=== PATIENT | male | born 1985 | race Caucasian/White ===

== ENCOUNTER 2020-03-07 11:20 | Emergency (ER) | payer OTHER ==
[2020-03-07] MEDS ORDERED: XYLOCAINE 1% HCL 20 ML MDV IJ ONE (11:44)
[2020-03-07] MEDS ORDERED: XYLOCAINE 1% HCL 20 ML MDV ONE (11:47)
--- NOTE | 2020-03-07 12:06 | ERPHSYRPT ---
- History of Present Illness Time Seen by Provider: 03/07/20 11:40 Source: patient Exam Limitations: no limitations Patient Subjective Stated Complaint: Laceration Triage Nursing Assessment: Patient ambulated back to ED and transferred self to bed. Patient A+O X3. Patient's skin pink, warm and dry. Patient complains of laceration to left thigh. 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 6cm X 1cm laceration noted. Patient denies pain or discomfort. Patient states he is up to date on tetanus. Physician History: Patient is a 34-year-old male presents to our ED with a laceration to his proximal left anterolateral thigh. Patient was cutting a tree and inadvertently injured himself with his chainsaw. Injury occurred just prior to arrival. Tetanus up-to-date. Pain localized. No other injuries. Symptoms are mild to moderate intensity. No specific worsening or improving factors. No associated trauma otherwise. Patient voices no other complaints concerns at this time. Method of Injury: other (Chainsaw.) Occurred: just prior to arrival Quality: constant Severity of Pain-Max: moderate Severity of Pain-Current: mild Lower Extremities Pain: thigh: left Modifying Factors: Improves With: other (Outpatient to the involved area.) Associated Symptoms: none Allergies/Adverse Reactions: erythromycin base Allergy (Verified 03/07/20 11:28) Hives Hx Tetanus, Diphtheria Vaccination/Date Given: Yes (UP TO DATE) Hx Influenza Vaccination/Date Given: No Hx Pneumococcal Vaccination/Date Given: No Immunizations Up to Date: Yes Travel Risk - International Travel Have you traveled outside of the country in past 3 weeks: No - Coronavirus Screening Are you exhibiting any of the following symptoms?: No Close contact with a COVID-19 positive Pt in past 14-21 Days: No - Review of Systems Constitutional: No Symptoms, No Fever, No Chills Eyes: No Symptoms Ears, Nose, & Throat: No Symptoms Respiratory: No Symptoms, No Cough, No Dyspnea Cardiac: No Symptoms, No Chest Pain, No Edema, No Syncope Abdominal/Gastrointestinal: No Symptoms, No Abdominal Pain, No Nausea, No Vomiting, No Diarrhea Genitourinary Symptoms: No Symptoms, No Dysuria Musculoskeletal: No Symptoms, No Back Pain, No Neck Pain Skin: No Symptoms, No Rash Neurological: No Symptoms, No Dizziness, No Focal Weakness, No Sensory Changes Psychological: No Symptoms Endocrine: No Symptoms Hematologic/Lymphatic: No Symptoms Immunological/Allergic: No Symptoms All Other Systems: Reviewed and Negative - Past Medical History Pertinent Past Medical History: Yes Neurological History: Migraines ENT History: No Pertinent History Cardiac History: No Pertinent History Respiratory History: No Pertinent History Endocrine Medical History: No Pertinent History Musculoskeletal History: No Pertinent History GI Medical History: No Pertinent History History: No Pertinent History Psycho-Social History: No Pertinent History Male Reproductive Disorders: No Pertinent History Other Medical History: weakness recently- pt states he has been going thru testing - Past Surgical History Past Surgical History: Yes Gastrointestinal: Hernia Repair Musculoskeletal: Orthopedic Surgery Other Surgical History: acl repair - Social History Smoking Status: Never smoker Exposure to second hand smoke: No Drug Use: none Patient Lives Alone: No - Nursing Vital Signs Nursing Vital Signs: Initial Vital Signs Pulse Rate 105 H 03/07/20 11:29 Respiratory Rate 18 03/07/20 11:29 Blood Pressure 158/94 03/07/20 11:29 O2 Sat by Pulse Oximetry 99 03/07/20 11:29 Pain Scale Pain Intensity 0 - Physical Exam General Appearance: no apparent distress, alert Eyes, Ears, Nose, Throat Exam: moist mucous membranes Neck Exam: non-tender, supple Cardiovascular/Respiratory Exam: chest non-tender, normal breath sounds, regular rate/rhythm, no respiratory distress Gastrointestinal/Abdominal Exam: non-tender, guarding Back Exam: normal inspection, No vertebral tenderness Hips Exam: bilateral: non-tender, normal inspection, normal range of motion, no evidence of injury Legs Exam: right leg: non-tender, normal inspection, normal range of motion, no evidence of injury Knees Exam: left knee: other (Left thigh presents with a superficial 6 cm x 1 cm laceration.), bilateral knee: non-tender, normal inspection, normal range of motion, no evidence of injury Ankle Exam: bilateral ankle: non-tender, normal inspection, normal range of motion, no evidence of injury Foot Exam: bilateral foot: non-tender, normal inspection, normal range of motion, no evidence of injury Neuro/Tendon Exam: normal sensation, normal motor functions Mental Status Exam: alert, oriented x 3, cooperative Skin Exam: normal color, warm, dry SpO2 Interpretation: normal SpO2: 99 O2 Delivery: Room Air Procedures - Laceration/Wound Repair Left Upper Anterior Lateral Proximal Thigh Wound Location: Left Wound Length (cm): 6 Wound's Depth, Shape: superficial Wound Explored: clean Irrigated: Yes Hibiclens Prep: Yes Anesthesia: 1% Lidocaine Volume Anesthetic (ccs): 5 Wound Debrided: Agreement necessary. Wound Repaired With: sutures Suture Size/Type: 5-0, nylon Number of Sutures: 7 Layer Closure?: No Sterile Dressing Applied?: Yes Splint Applied?: Yes Ordered Tests: Medication Summary Discontinued Medications Generic Name Dose Route Start Last Admin Trade Name Fabian PRN Reason Stop Dose Admin Lidocaine HCl 5 ml 03/07/20 11:44 03/07/20 11:50 Xylocaine 1% Hcl 20 Ml Mdv IJ 03/07/20 11:45 5 ml STAT ONE Administration Lidocaine HCl Confirm 03/07/20 11:47 Xylocaine 1% Hcl 20 Ml Mdv Administered 03/07/20 11:48 Dose 5 ml .ROUTE .STRocketBolt-MED ONE - Progress Progress: improved Progress Note: 03/07/20 12:09 7 sutures applied after wound was irrigated. Sutures were simple interrupted. No complications. Patient tolerated procedure well. Neurovascular type d istally post procedure. Sutures shall stay in for approximately 7 days. Antibiotics forwarded the patient's pharmacy. Tetanus up-to-date. Patient voiced no other complaints or concerns at this time. Patient follow-up with his primary care doctor within 48 hours for reevaluation. Counseled pt/family regarding: diagnosis, need for follow-up - Departure Departure Disposition: Home Clinical Impression: Laceration Condition: Stable Critical Care Time: No Instructions: Laceration Repair With Stitches (DC) Additional Instructions: Discharge/Care Plan BERNIEMORGANMIGUEL ANGELANA RIOS was seen on 03/07/20 in the Emergency Room. The patient was counseled regarding Diagnosis,Lab results, Imaging studies, need for follow up and when to return to the Emergency Room. Prescriptions given: Discharge Note I have spoken with the patient and/or caregivers. I have explained the patient's condition, diagnosis and treatment plan based on the information available to me at this time. I have answered the patient's and/or caregiver's questions and addressed any concerns. The patient and/or caregivers have as good understanding of the patient's diagnosis, condition and treatment plan as can be expected at this point. The vital signs have been stable. The patient's condition is stable and appropriate for discharge from the emergency department. The patient will pursue further outpatient evaluation with the primary care physician or other designated or consulting physician as outlined in the d ischarge instructions. The patient and/or caregivers are agreeable to this plan of care and follow-up instructions have been explained in detail. The patient and/or caregivers have received these instruction. The patient/and or caregivers are aware that any significant change in condition or worsening of symptoms should prompt an immediate return to this or the closest emergency department or call 911. Prescriptions: Cephalexin Mh 500 mg [Keflex 500 mg] 500 mg PO TID 5 Days #15 capsule
[2020-03-07] MEDS ORDERED: BACIGUENT PACKET ONE (12:15)
[2020-03-07 12:27] VITALS: BP 143/97; PULSE 88; O2SAT 100
== END 2020-03-07 12:22 | disposition home or self-care (01) ==
LOC: ED 11:20
DX: S71.112A Laceration without foreign body, left thigh, initial encounter (principal); W29.3XXA Contact with powered garden and outdoor hand tools and machinery, initial encounter; Y93.9 Activity, unspecified; Y92.9 Unspecified place or not applicable
CPT/HCPCS: 12002; 99283; A9270-GY

== ENCOUNTER 2021-05-16 15:58 | Day surgery (SDC) | payer OTHER ==
[2021-05-16] MEDS ORDERED: Depo-Medrol 40 MG/ML IM ONE (15:59)
[2021-05-16] MEDS ORDERED: Xylocaine 1% Vial 30 ML PF IJ ONE (15:59)
[2021-05-16] MEDS ORDERED: Sodium Chloride 0.9(Preservative Free) 10 ML IJ ONE (15:59)
[2021-05-16] MEDS ORDERED: Lactated Ringers 1,000 ML IV ONE (16:33)
[2021-05-16] MEDS ORDERED: DIPRIVAN 200 MG/20 ML IV ONE ×2 (17:32→17:37)
--- NOTE | 2021-05-16 20:38 | XRAY ---
Indication: Lumbar ZANE. Intraoperative fluoroscopy provided for 32 seconds. 2 digital spot images submitted for interpretation demonstrates posterior needle tip projecting just posterior to L4-L5 interspace. Small amount of contrast injected for needle tip placement. Correlate with intraoperative findings/report.
--- NOTE | 2021-05-17 14:59 | XRAY ---
32 seconds of fluoroscopy was used in surgery for a lumbar ZANE.
== END 2021-05-16 18:10 | disposition home or self-care (01) ==
LOC: SDC-PAIN 15:58
PROVIDERS: ATTEND Psychiatry & Neurology Pain Medicine
DX: M54.16 Radiculopathy, lumbar region (principal); Z79.899 Other long term (current) drug therapy
CPT/HCPCS: 62323; 72100; 77003; J1030; J2001; J2704; Q9966

== ENCOUNTER 2021-06-27 15:18 | Day surgery (SDC) | payer OTHER ==
[2021-06-27] MEDS ORDERED: Xylocaine 1% Vial 30 ML PF IJ ONE (15:19)
[2021-06-27] MEDS ORDERED: Depo-Medrol 40 MG/ML IM ONE (15:19)
[2021-06-27] MEDS ORDERED: Sodium Chloride 0.9% 10 ML FLUSH Syringe IJ ONE (15:19)
[2021-06-27] MEDS ORDERED: Lactated Ringers 1,000 ML IV ONE (16:08)
[2021-06-27] MEDS ORDERED: DIPRIVAN 200 MG/20 ML IV ONE ×2 (16:37→16:44)
--- NOTE | 2021-06-27 22:05 | XRAY ---
Indication: Lumbar ZANE. Intraoperative fluoroscopy provided for 29 seconds. Single lateral digital spot image submitted for interpretation demonstrates posterior needle tip projecting just posterior to the L4-L5 interspace. Small amount of contrast injected for needle tip placement. Correlate with intraoperative findings/report.
--- NOTE | 2021-06-28 09:03 | XRAY ---
29 seconds fluoroscopy time in surgery for lumbar ZANE.
== END 2021-06-27 17:15 | disposition home or self-care (01) ==
LOC: SDC-PAIN 15:18
PROVIDERS: ATTEND Psychiatry & Neurology Pain Medicine
DX: M54.16 Radiculopathy, lumbar region (principal); Z79.899 Other long term (current) drug therapy
CPT/HCPCS: 62323; 72100; 77003; J1030; J2001; J2704; Q9966

== ENCOUNTER 2021-07-25 10:15 | Day surgery (SDC) | payer OTHER ==
[2021-07-25] MEDS ORDERED: LIDOCAINE HCL 2% 100 MG/5 ML IJ ONE (10:16)
[2021-07-25] MEDS ORDERED: Depo-Medrol 40 MG/ML IM ONE (10:16)
[2021-07-25] MEDS ORDERED: Lactated Ringers 1,000 ML IV ONE (11:20)
[2021-07-25] MEDS ORDERED: DIPRIVAN 200 MG/20 ML IV ONE (11:49)
[2021-07-25] MEDS ORDERED: Ketamine HCl 50 MG/ML ONE (11:52)
--- NOTE | 2021-07-25 12:36 | XRAY ---
Indication: Bilateral L4-S1 MBB. Intraoperative fluoroscopy provided for 8 seconds. Single digital spot image submitted for interpretation demonstrates posterior needle tips projecting over the expected left and right L4-S1 nerve roots. Correlate with intraoperative findings/report.
--- NOTE | 2021-07-25 12:46 | XRAY ---
8 seconds fluoroscopy time in surgery for bilateral L4-S1 MBB.
== END 2021-07-25 12:13 | disposition home or self-care (01) ==
LOC: SDC-PAIN 10:15
PROVIDERS: ATTEND Psychiatry & Neurology Pain Medicine
DX: M47.816 Spondylosis without myelopathy or radiculopathy, lumbar region (principal); Z79.899 Other long term (current) drug therapy
CPT/HCPCS: 64493; 64494; 72020; 77002; J1030; J2704

== ENCOUNTER 2021-07-27 20:47 | Emergency (ER) | payer OTHER ==
[2021-07-27] MEDS ORDERED: Adacel Vial IM ONE ×2 (21:02→21:17)
[2021-07-27] MEDS ORDERED: KEFZOL 1 GM IM ONE (21:03)
[2021-07-27] MEDS ORDERED: KEFZOL 1 GM ONE (21:16)
--- NOTE | 2021-07-27 21:57 | XRAY ---
Indication: Head injury with laceration. Multiple contiguous axial images obtained through the head without contrast. Comparison: March 25, 2016. Normal appearing brain parenchyma, ventricles, and bony calvarium. New small right posterior parietal scalp hematoma with overlying cutaneous yesika. Visualized paranasal sinuses and master cells are clear. Impression: Right posterior parietal scalp hematoma. Remaining CT head without contrast exam is again normal.
--- NOTE | 2021-07-27 22:20 | ERPHSYRPT ---
- History of Present Illness Source: patient Exam Limitations: no limitations Patient Subjective Stated Complaint: I was standing up cutting a piece of metal, went to step back and tripped on a motorcycle aleks, trying to catch myself, I grabbed a piece of metal in my garage and it sliced my hand open Triage Nursing Assessment: Pt was in garage cutting a piece of metal, he went to step back and tripped on a motorcyle aleks, trying to catch himself he grabbed a piece of sheet metal and sliced rt hand open. Pt has lacerations to all 4 fingers at the back side of knuckles, middle finger is deep with tendon exposed. Pt also has laceration to rt posterior side of head, cleansed with NS and hibiclens, and Dr. Bloom secured it with 3 gordon. Pt had 2.5 cans of beer tonight prior to incident. Physician History: 35 yo wm fell in his garage before arrival lacerating his R 2-5 digits ventrally on palmar side. Pt unable to flex digits 3/4 but has good capillary return and sensation of all digits. He also lacerated his R parietal scalp. Pt denies LOC/cervical pain/N/V/T-L spine pain/chest pain/abdominal pain/LE pain. States that he has consumed a small amount of alcohol this evening but denies other injuries. Occurred: just prior to arrival Method of Injury: fell Quality: constant Severity of Pain-Max: moderate Severity of Pain-Current: moderate Extremities Pain Location: 2nd finger: right, 3rd finger: right, 4th finger: right, 5th finger: right Modifying Factors: Improves With: movement Associated Symptoms: none Allergies/Adverse Reactions: erythromycin base Allergy (Verified 07/27/21 21:07) Hives Home Medications: Gabapentin 300 mg [Neurontin 300 mg] 300 mg PO BID 07/27/21 [History] Hx Tetanus, Diphtheria Vaccination/Date Given: No Hx Influenza Vaccination/Date Given: No Hx Pneumococcal Vaccination/Date Given: No Immunizations Up to Date: No Travel Risk - International Travel Have you traveled outside of the country in past 3 weeks: No - Coronavirus Screening Are you exhibiting any of the following symptoms?: No Close contact with a COVID-19 positive Pt in past 14-21 Days: No - Vaccine Status Have you recieved a Covid-19 vaccination: No - Review of Systems Constitutional: No Symptoms Eyes: No Symptoms Ears, Nose, & Throat: No Symptoms Respiratory: No Symptoms Cardiac: No Symptoms Abdominal/Gastrointestinal: No Symptoms Genitourinary Symptoms: No Symptoms Skin: No Symptoms Neurological: No Symptoms Psychological: No Symptoms Endocrine: No Symptoms Hematologic/Lymphatic: No Symptoms Immunological/Allergic: No Symptoms - Past Medical History Pertinent Past Medical History: Yes Neurological History: Migraines ENT History: No Pertinent History Cardiac History: No Pertinent History Respiratory History: No Pertinent History Endocrine Medical History: No Pertinent History Musculoskeletal History: No Pertinent History GI Medical History: No Pertinent History History: No Pertinent History Psycho-Social History: No Pertinent History Male Reproductive Disorders: No Pertinent History Other Medical History: weakness recently- pt states he has been going thru testing - Past Surgical History Past Surgical History: Yes Gastrointestinal: Hernia Repair Musculoskeletal: Orthopedic Surgery Other Surgical History: acl repair. back surgery - Social History Smoking Status: Former smoker Exposure to second hand smoke: No Drug Use: none Patient Lives Alone: No Significant Family History: no pertinent family hx - Nursing Vital Signs Nursing Vital Signs: Initial Vital Signs Temperature 98.3 F 07/27/21 20:53 Pulse Rate 97 H 07/27/21 20:53 Respiratory Rate 16 07/27/21 20:53 Blood Pressure 141/91 07/27/21 20:53 O2 Sat by Pulse Oximetry 100 07/27/21 20:53 Pain Scale Pain Intensity 0 Hypertensive - Physical Exam General Appearance: no apparent distress (2cm Lac R parietal area) Eyes, Ears, Nose, Throat Exam: normal ENT inspection, TMs normal, pharynx normal, moist mucous membranes Neck Exam: normal inspection, non-tender, supple (C-spine NTTP) Cardiovascular/Respiratory Exam: chest non-tender, normal breath sounds, regular rate/rhythm, heart sounds normal Abdominal Exam: non-tender, soft, No tenderness Back Exam: normal inspection, normal range of motion, No CVA tenderness Shoulder Exam: normal inspection, non-tender, no evidence of injury Elbow/Forearm Exam: normal inspection, non-tender, no evidence of injury Wrist Exam: normal inspection, non-tender, no evidence of injury Hand Exam: laceration (Ventral lacerations between MCP-PIP's on digitals 2-5 of R hand/Good distal capillary return and sensation of all digits/Pt unable to flex digits 3/4) DTR - Upper Extremity Exam: bicep (R): 2+, bicep (L): 2+ Neuro/Tendon Exam: normal sensation, tendon function deficit (Flexion digits 3/4 of R hand) Mental Status Exam: alert, oriented x 3, cooperative Skin Exam: normal color, warm, dry SpO2 Interpretation: normal SpO2: 100 O2 Delivery: Room Air Procedures - Laceration/Wound Repair Right Parietal Wound Location: Right (R parietal scalp) Wound Length (cm): 3 Wound's Depth, Shape: linear Wound Explored: clean Hibiclens Prep: Yes Wound Repaired With: Gordon (Gordon x3) - Course Nursing assessment & vital signs reviewed: Yes - CT Exams Head CT Interpretation: Discussed w/radiologist (Neg per Dr. Daniels) Ordered Tests: Active Orders 24 hr Category Date Time Status HEAD WITHOUT CONTRAST [CT] Stat Exams 07/27/21 21:12 Completed Medication Summary Discontinued Medications Generic Name Dose Route Start Last Admin Trade Name Freq PRN Reason Stop Dose Admin Cefazolin Sodium 2 g 07/27/21 21:03 07/27/21 21:29 Cefazolin Sodium 1 Gm Vial IM 07/27/21 21:04 2 g STAT ONE Administration Cefazolin Sodium Confirm 07/27/21 21:16 Cefazolin Sodium 1 Gm Vial Administered 07/27/21 21:17 Dose 2 g .ROUTE .STK-MED ONE Diphtheria/Tetanus/Acell Pertussis 0.5 ml 07/27/21 21:02 07/27/21 21:28 Tdap --Diph,Pertuss(Acell),Tet Vac/Pf 0.5 Ml Vial IM 07/27/21 21:03 0.5 ml .ONCE ONE Administration Diphtheria/Tetanus/Acell Pertussis Confirm 07/27/21 21:17 Tdap --Diph,Pertuss(Acell),Tet Vac/Pf 0.5 Ml Vial Administered 07/27/21 21:18 Dose 0.5 ml IM .STK-MED ONE - Progress Progress: improved Progress Note: 07/27/21 22:33 Tdap 2gms IM Kefzol Pt accepted by Dr. Cummings at [facility] 07/28/21 00:24 Wet to dry dressing placed on R hand/fingers per nursing/NVI Pt transferred to [facility] ER by private vehicle w driving. Good hemostasis, distal capillary return, and sensation upon discharge. Pt advised no food or drink in route. Counseled pt/family regarding: diagnosis, need for follow-up - Departure Departure Disposition: Transfer Clinical Impression: Scalp laceration, Finger laceration involving tendon Condition: Stable Critical Care Time: No Referrals: EDELMIRA AGUAYO MD [Primary Care Provider] - Follow up/PCP as directed Instructions: Surgical Wound (DC) Additional Instructions: [facility] ER [facility] Nothing to eat/drink in route Keep scalp laceration dry for 3 days, then wash gently w mild soap/water Gordon out in 10 days Watch for signs of infection-redness/pain/pus/temperature greater than 100.5
[2021-07-27 22:50] VITALS: BP 134/84; PULSE 95
[2021-07-28 00:27] VITALS: O2SAT 100
== END 2021-07-27 22:48 | disposition home or self-care (01) ==
LOC: ED 20:47
DX: S61.210A Laceration without foreign body of right index finger without damage to nail, initial encounter (principal); S61.212A Laceration without foreign body of right middle finger without damage to nail, initial encounter; S61.214A Laceration without foreign body of right ring finger without damage to nail, initial encounter; S61.216A Laceration without foreign body of right little finger without damage to nail, initial encounter; S01.01XA Laceration without foreign body of scalp, initial encounter; W18.09XA Striking against other object with subsequent fall, initial encounter; Y93.H3 Activity, building and construction; Y92.008 Other place in unspecified non-institutional (private) residence as the place of occurrence of the external cause; S66.120A Laceration of flexor muscle, fascia and tendon of right index finger at wrist and hand level, initial encounter; S66.122A Laceration of flexor muscle, fascia and tendon of right middle finger at wrist and hand level, initial encounter; S66.124A Laceration of flexor muscle, fascia and tendon of right ring finger at wrist and hand level, initial encounter; S66.126A Laceration of flexor muscle, fascia and tendon of right little finger at wrist and hand level, initial encounter
CPT/HCPCS: 12002; 70450; 90471; 90715; 96372; 99284; J0690

== ENCOUNTER 2021-08-07 20:57 | Emergency (ER) | payer OTHER ==
--- NOTE | 2021-08-07 21:31 | ERPHSYRPT ---
- History of Present Illness Time Seen by Provider: 08/07/21 21:25 Source: patient Exam Limitations: no limitations Physician History: Patient is a 35-year-old male postop day 1 hand surgery performed at [facility] by Dr. Norm Cummings. Patient states that the dorsal cast material on his surgical hand has shifted and is cutting into his pinky finger. No other complaints. Patient states his hand is uncomfortable however this was expected in light of his recent surgery. Patient has been taking his oral pain medication as recommended. Patient states that the pain at his pinky finger is beyond what the pain medication is treating. Patient states it feels as though the cast material is cutting into his pinky. No other complaints. Patient's fingers were assessed. Fingers are well-perfused. Sensation to light touch intact. No falls or direct trauma to the involved hand. Symptoms are mild to moderate in intensity. Patient voices no other complaints or concerns at this time. Timing/Duration: today Severity: moderate Modifying Factors: Improves With: other (Patient states wiggling his little finger away from the edge of the cast material improves his pain however when he rests his hand his finger falls right over the edge of the cast material thereby causing pain to his little finger.) Associated Symptoms: denies symptoms Allergies/Adverse Reactions: erythromycin base Allergy (Verified 08/07/21 21:43) Hives Home Medications: Gabapentin 300 mg [Neurontin 300 mg] 300 mg PO BID 07/27/21 [History] Hx Tetanus, Diphtheria Vaccination/Date Given: No Hx Influenza Vaccination/Date Given: No Hx Pneumococcal Vaccination/Date Given: No Travel Risk - Vaccine Status Have you recieved a Covid-19 vaccination: No - Review of Systems Constitutional: No Symptoms, No Fever, No Chills Eyes: No Symptoms Ears, Nose, & Throat: No Symptoms Respiratory: No Symptoms, No Cough, No Dyspnea Cardiac: No Symptoms, No Chest Pain, No Edema, No Syncope Abdominal/Gastrointestinal: No Symptoms, No Abdominal Pain, No Nausea, No Vomiting, No Diarrhea Genitourinary Symptoms: No Symptoms, No Dysuria Musculoskeletal: No Symptoms, No Back Pain, No Neck Pain Skin: No Symptoms, No Rash Neurological: No Symptoms, No Dizziness, No Focal Weakness, No Sensory Changes Psychological: No Symptoms Endocrine: No Symptoms Hematologic/Lymphatic: No Symptoms Immunological/Allergic: No Symptoms All Other Systems: Reviewed and Negative - Past Medical History Pertinent Past Medical History: Yes Neurological History: Migraines ENT History: No Pertinent History Cardiac History: No Pertinent History Respiratory History: No Pertinent History Endocrine Medical History: No Pertinent History Musculoskeletal History: No Pertinent History GI Medical History: No Pertinent History History: No Pertinent History Psycho-Social History: No Pertinent History Male Reproductive Disorders: No Pertinent History Other Medical History: weakness recently- pt states he has been going thru testing - Past Surgical History Past Surgical History: Yes Gastrointestinal: Hernia Repair Musculoskeletal: Orthopedic Surgery Other Surgical History: acl repair. back surgery - Social History Smoking Status: Former smoker Exposure to second hand smoke: No Drug Use: none Patient Lives Alone: No Significant Family History: no pertinent family hx - Nursing Vital Signs Nursing Vital Signs: Initial Vital Signs Temperature 97.8 F 08/07/21 21:18 Pulse Rate 70 08/07/21 21:18 Respiratory Rate 16 08/07/21 21:18 Blood Pressure 166/112 08/07/21 21:18 O2 Sat by Pulse Oximetry 99 08/07/21 21:18 Pain Scale Pain Intensity 8 - Physical Exam General Appearance: no apparent distress, alert Eye Exam: PERRL/EOMI, eyes nml inspection Ears, Nose, Throat Exam: normal ENT inspection, TMs normal, pharynx normal, moist mucous membranes Neck Exam: normal inspection, non-tender, supple, full range of motion Respiratory Exam: normal breath sounds, lungs clear, airway intact, No respiratory distress Cardiovascular Exam: regular rate/rhythm, normal heart sounds, normal peripheral pulses Gastrointestinal/Abdomen Exam: soft, normal bowel sounds, No tenderness, No mass Back Exam: normal inspection, normal range of motion, No CVA tenderness, No vertebral tenderness Extremity Exam: normal inspection, normal range of motion, pelvis stable, other (The involved extremity is resting comfortably and the cast and dressings. The cast is cutting into his small finger. All digits are neurovascular intact distally. Compartments are soft. Cap refill less than 2 seconds. Sensation to light touch intact.) Neurologic Exam: alert, oriented x 3, cooperative, normal mood/affect, nml cerebellar function, nml station & gait, sensation nml, No motor deficits Skin Exam: normal color, warm, dry, No rash Lymphatic Exam: No adenopathy SpO2 Interpretation: normal SpO2: 99 O2 Delivery: Room Air - Course Nursing assessment & vital signs reviewed: Yes - Progress Progress: improved Progress Note: Case discussed with orthopedic surgery resident covering overnight service. I described to him exactly why the patient came into our ED and what we did to relieve the patient symptoms. I expressed that patient is neurovascular tact distally post our correction of his cast material. No further recommendations per the orthopedic surgery resident. They will see him this coming . Patient states he feels well. He has no other complaints. Patient has adequate pain medication at least until his next orthopedic clinic visit on . He voices no other complaints or concerns at this time. No indication for further work-up at this time. Will discharge home. Portions of this note were created with voice recognition technology. There may be grammatical, spelling, punctuation or sound alike errors 08/07/21 21:53 Counseled pt/family regarding: diagnosis, rad results - Departure Departure Disposition: Home Clinical Impression: Cast discomfort Condition: Stable Critical Care Time: No Referrals: EDELMIRA AGUAYO MD [Primary Care Provider] - Follow up/PCP as directed Instructions: Cast Care Additional Instructions: Discharge/Care Plan ROSELYN VARGAS was seen on 08/07/21 in the Emergency Room. The patient was counseled regarding Diagnosis,Lab results, Imaging studies, need for follow up and when to return to the Emergency Room. Prescriptions given: Discharge Note I have spoken with the patient and/or caregivers. I have explained the patient's condition, diagnosis and treatment plan based on the information available to me at this time. I have answered the patient's and/or caregiver's questions and addressed any concerns. The patient and/or caregivers have as good understanding of the patient's diagnosis, condition and treatment plan as can be expected at this point. The vital signs have been stable. The patient's condition is stable and appropriate for discharge from the emergency department. The patient will pursue further outpatient evaluation with the primary care physician or other designated or consulting physician as outlined in the discharge instructions. The patient and/or caregivers are agreeable to this plan of care and follow-up instructions have been explained in detail. The patient and/or caregivers have received these instruction. The patient/and or caregivers are aware that any significant change in condition or worsening of symptoms should prompt an immediate return to this or the closest emergency department or call 911.
[2021-08-07 22:04] VITALS: BP 156/98; PULSE 76; O2SAT 96
== END 2021-08-07 22:04 | disposition home or self-care (01) ==
LOC: ED 20:57
DX: Z46.89 Encounter for fitting and adjustment of other specified devices (principal); M79.646 Pain in unspecified finger(s)
CPT/HCPCS: 99283

== ENCOUNTER 2021-09-05 11:22 | Day surgery (SDC) | payer OTHER ==
[2021-09-05] MEDS ORDERED: LIDOCAINE HCL 2% 100 MG/5 ML IJ ONE (11:23)
[2021-09-05] MEDS ORDERED: DIPRIVAN 200 MG/20 ML IV ONE ×2 (13:41→13:57)
[2021-09-05] MEDS ORDERED: Lactated Ringers 1,000 ML IV ONE (13:56)
--- NOTE | 2021-09-05 15:22 | XRAY ---
Indication: Bilateral L4-S1 MBB. Intraoperative fluoroscopy provided for 12 seconds. Single digital spot image submitted for interpretation demonstrates posterior needle tips projecting over the expected left and right L4-S1 nerve roots. Correlate with intraoperative findings/report.
--- NOTE | 2021-09-05 15:28 | XRAY ---
12 seconds fluoroscopy time in surgery for bilateral L4-S1 MBB.
== END 2021-09-05 14:13 | disposition home or self-care (01) ==
LOC: SDC-PAIN 11:22
PROVIDERS: ATTEND Psychiatry & Neurology Pain Medicine
DX: M47.816 Spondylosis without myelopathy or radiculopathy, lumbar region (principal); Z79.899 Other long term (current) drug therapy
CPT/HCPCS: 64493; 64494; 72020; 77002; J2704

== ENCOUNTER 2023-03-09 19:06 | Observation (INO) | payer OTHER ==
[2023-03-09] MEDS ORDERED: Sodium Chloride 0.9% 1000 ML 1,000 ML IV STA (19:38)
[2023-03-09] MEDS ORDERED: Reglan 10 MG/2 ML IV ONE (19:39)
[2023-03-09] MEDS ORDERED: BENADRYL 50 MG/ML IV ONE (19:39)
[2023-03-09] MEDS ORDERED: TYLENOL 325 MG PO ONE (19:39)
[2023-03-09] MEDS ORDERED: BENADRYL 50 MG/ML ONE (19:44)
[2023-03-09] MEDS ORDERED: Reglan 10 MG/2 ML ONE (19:45)
[2023-03-09] MEDS ORDERED: Sodium Chloride 0.9% 1000 ML 1,000 ML ONE (19:45)
[2023-03-09] MEDS ORDERED: TYLENOL 325 MG ONE (19:45)
[2023-03-09 19:47] LABS: Absolute Neutrophil Ct (ANC) 4.09 x10^3/uL (1.4-6.9); BASOPHIL % 0.7 % (0.0-0.4); Basophil (Absolute #) 0.05 x10^3/uL (0-0.4); Eosinophil % 2.9 % (0.00-5.0); Hematocrit 46.7 % (42-50); Hemoglobin 16.1 g/dL (12.5-18.0); IMMATURE GRAN # 0.01 x10^3u/L (0.00-0.03); IMMATURE GRAN % 0.1 % (0.00-0.4); Mean Corpuscular Hgb Concent. 34.5 g/dL (32-36); Monocyte (Absolute #) 0.32 x10^3/uL (0.0-1.3); Monocytes % 4.6 % (0.0-12.0); Neutrophil % 58.7 % (36.0-66.0); Platelet Count 287 x10^3/uL (150-450); Red Blood Count 5.19 x10^6/uL (4.1-5.6); Red Cell Distribution Width 11.2 % (11.5-14.0)
--- NOTE | 2023-03-09 19:56 | XRAY ---
CLINICAL HISTORY:HALE, frequent fall COMPARISON:07/27/2021. TECHNIQUE:Axial non-contrast CT scan of the brain was performed from the skull base to the high parietal region. FINDINGS: There is no significant change in the region of CSF density along the convexity of the right high frontal region, with associated compression of the underlying right frontal lobe and scalloping of the overlying bone. It measures approximately 1.8 x 2.5 x 4.9 cm (CC x W x AP). No evidence of acute intracranial hemorrhage or major vascular territory infarct. The rest of the cortical sulci, fissures, basal cisterns, and ventricles are normal in size and configuration. Encarnacion-white matter differentiation is maintained. No midline shifts or deformity. Normal CT appearance of the posterior fossa structures namely the cerebellar hemispheres, brainstem, and cerebellar peduncles. The IACs are unremarkable. The cerebello-pontine angles are clear. The pituitary gland, the pineal gland, and the optic chiasm are unremarkable. The osseous structures in the skull base are unremarkable. No definite calvarium fractures. The scanned paranasal sinuses are clear. IMPRESSION: 1. Region of CSF-density along the convexity of the right high frontal region, with associated compression of the underlying right frontal lobe and scalloping of the overlying bone, measuring approximately 1.8 x 2.5 x 4.9 cm (CC x W x AP). The primary consideration is an arachnoid cyst. MRI correlation is suggested for further evaluation. 2. No significant change from the prior study. Electronically Signed by: Tara Swartz MD. (03/09/2023 18:55:17 [employer])
[2023-03-09 20:00] LABS: ALBUMIN 4.4 g/dL (3.5-5.0); ALKALINE PHOSPHATASE 80 U/L (38-126); BLOOD UREA NITROGEN 9 mg/dL (9-20); CHLORIDE 102 mmol/L (98-107); CK-Creatinine Phosphokinase 70 U/L (55-170); Calcium 8.8 mg/dL (8.4-10.2); Carbon Dioxide 29 mmol/L (22-30); Creatinine 1 1.26 mg/dL (0.66-1.25); EST GLOMERULAR FILTRATION RATE > 60.0 ML/MIN; Glucose 110 mg/dL (74-106); MAGNESIUM 2.3 mg/dL (1.6-2.3); NT PRO BNPII < 20.0 pg/mL (<300); Potassium 3.7 mmol/L (3.5-5.1); SGOT/AST 26 U/L (17-59); SGPT/ALT 23 U/L (0-50); SODIUM 140 mmol/L (137-145); Total Protein 7.3 g/dL (6.3-8.2)
--- NOTE | 2023-03-09 20:36 | ERPHSYRPT ---
- History of Present Illness Time Seen by Provider: 03/09/23 19:12 Source: patient, family Exam Limitations: no limitations Patient Subjective Stated Complaint: per spouse pt's daughter called her around 1800 and let her know that the pt had fallen 3 times and was complaining of severe headache and dizziness. when spouse arrived home pt was not "acting normally" and didn't remember talking to his just prior to her arrival to home. pt reports that he is still dizzy, feels like everything is blurry. reports 9/10 constant pain to bilat front head and right upper chest. pt states he is unsure if he hit his head while falling or not. Triage Nursing Assessment: pt brought to room 7 via wheelchair and was able to transfer self with SBA into bed with slow steady gait. pt is alert and oriented times three, able to move all extremities, able to speak in complete sentences, and with resp even and unlabored. bilat pupils 4mm, round, equal, and reactive to light. heart sounds normal and present. lung sounds are clear bilat anterior throughout. abd soft, non tender, nondistended, with positive bowel sounds in all quadrants. denies sob, n/v, diarrhea, difficulty with urination or bowel elimination. bilat radial and pedal pulses palpable and equal. 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 skin warm dry and intact. cap refill and skin turgor within normal limits. strength in bilat upper and lower extremities is equal and strong. able to follow complex commands. reports sensitivity to light so has towel over eyes and lights off in room Physician History: 37 years old male with history of migraines, anxiety/depression, tobacco abuse presented in the ER with chief complaint of headache with dizziness and repeated falls. Patient reports he had headaches this afternoon and around 6 PM he was walking, started to feel dizzy lightheaded and collapsed on the floor. Does not remember hitting his head. Per he was not acting himself when she got home around 6 PM. Patient reports moderate to severe sharp frontal headache with some blurry vision and nausea but no vomiting. Patient reports no numbness tingling or focal weakness. No difficulty speech. Patient also reports having chest pain earlier before headache and dizziness started. Chest pain is much improved prior to arrival in the ER. Allergies/Adverse Reactions: erythromycin base Allergy (Verified 03/09/23 19:12) Hives Home Medications: Escitalopram Oxalate [Lexapro] 30 mg PO HS 03/09/23 [History] Hx Tetanus, Diphtheria Vaccination/Date Given: Yes Hx Influenza Vaccination/Date Given: Yes Hx Pneumococcal Vaccination/Date Given: No Immunizations Up to Date: Yes Travel Risk - International Travel Have you traveled outside of the country in past 3 weeks: No - Coronavirus Screening Are you exhibiting any of the following symptoms?: No Close contact with a COVID-19 positive Pt in past 14-21 Days: No - Vaccine Status Have you recieved a Covid-19 vaccination: No - Review of Systems Constitutional: Fatigue, Weakness Eyes: No Symptoms Ears, Nose, & Throat: No Symptoms Respiratory: No Symptoms Cardiac: Chest Pain Abdominal/Gastrointestinal: Nausea Genitourinary Symptoms: No Symptoms Musculoskeletal: No Symptoms Skin: No Symptoms Neurological: Dizziness, Headache Psychological: Anxiety, Depression Endocrine: No Symptoms Hematologic/Lymphatic: No Symptoms Immunological/Allergic: No Symptoms - Past Medical History Pertinent Past Medical History: Yes Neurological History: Migraines ENT History: No Pertinent History Cardiac History: No Pertinent History Respiratory History: No Pertinent History Endocrine Medical History: No Pertinent History Musculoskeletal History: No Pertinent History GI Medical History: No Pertinent History History: No Pertinent History Psycho-Social History: Depression Male Reproductive Disorders: No Pertinent History Other Medical History: weakness recently- pt states he has been going thru testing - Past Surgical History Past Surgical History: Yes Neuro Surgical History: No Pertinent History Cardiac: No Pertinent History Respiratory: No Pertinent History Gastrointestinal: Hernia Repair Genitourinary: No Pertinent History Musculoskeletal: Orthopedic Surgery Male Surgical History: No Pertinent History Other Surgical History: acl repair. back surgery - Social History Smoking Status: Former smoker Exposure to second hand smoke: No Drug Use: none Patient Lives Alone: No Significant Family History: no pertinent family hx - Nursing Vital Signs Nursing Vital Signs: Initial Vital Signs Temperature 98.1 F 03/09/23 19:14 Pulse Rate 85 03/09/23 19:14 Respiratory Rate 21 03/09/23 19:14 Blood Pressure 158/111 03/09/23 19:14 O2 Sat by Pulse Oximetry 97 03/09/23 19:14 Pain Scale Pain Intensity 4 - Anthony Coma Scale Best Eye Response (Anthony): (4) open spontaneously Best Verbal Response ([place]): (5) oriented Best Motor Response (Anthony): (6) obeys commands Anthony Total: 15 - Physical Exam General Appearance: no apparent distress, alert Eye Exam: bilateral eye: normal inspection, PERRL, EOMI Ears, Nose, Throat Exam: normal ENT inspection, TMs normal, pharynx normal, moist mucous membranes Neck Exam: normal inspection, non-tender, supple, full range of motion, No meningismus Respiratory: normal breath sounds, lungs clear Cardiovascular: regular rate/rhythm, normal heart sounds Gastrointestinal: soft, normal bowel sounds, No tenderness Back Exam: normal inspection, normal range of motion Extremity Exam: normal inspection, normal range of motion, pelvis stable Mental Status: alert, oriented x 3, 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 Exam: normal hearing, normal speech, PERRL Coordination/Gait: normal finger to nose, normal gait, normal cerebellar function, negative Romberg's sign, abnormal gait Motor/Sensory: no motor deficit, no sensory deficit, no pronator drift, negative Babinski's sign DTR: bicep (R): 2+, bicep (L): 2+, knee (R): 2+, knee (L): 2+ Skin Exam: normal color SpO2 Interpretation: normal SpO2: 98 O2 Delivery: Room Air - Course EKG Interpreted by Me: RATE (85), Sinus Rhythm, NORMAL AXIS, NORMAL INTERVALS, Non-specific ST Changes Ordered Tests: Medication Summary Discontinued Medications Generic Name Dose Route Start Last Admin Trade Name Freq PRN Reason Stop Dose Admin Acetaminophen 975 mg 03/09/23 19:39 03/09/23 19:50 Acetaminophen 325 Mg Tablet PO 03/09/23 19:40 975 mg STAT ONE Administration Acetaminophen Confirm 03/09/23 19:45 Acetaminophen 325 Mg Tablet Administered 03/09/23 19:46 Dose 975 mg .ROUTE .STK-MED ONE Acetaminophen 650 mg 03/10/23 03:34 03/10/23 17:32 Acetaminophen 325 Mg Tablet PO 04/09/23 03:33 650 mg Q4H PRN PRN Administration PAIN AND/OR FEVER Acetaminophen 650 mg 03/10/23 04:13 Acetaminophen 650 Mg Supp.Rect NJ 04/09/23 04:12 Q4H PRN PRN PAIN AND/OR FEVER Albuterol/Ipratropium 3 ml 03/10/23 03:34 Ipratropium/Albuterol Sulfate 3 Ml Ampul.Neb IH 04/09/23 03:33 Q4HPRN PRN SHORTNESS OF BREATH/WHEEZING Aspirin 81 mg 03/10/23 02:29 03/10/23 03:19 Aspirin 81 Mg Tab.Chew PO 03/10/23 02:30 81 mg STAT ONE Administration Diphenhydramine HCl 25 mg 03/09/23 19:39 03/09/23 19:50 Diphenhydramine Hcl 50 Mg/Ml Vial IV 03/09/23 19:40 25 mg STAT ONE Administration Diphenhydramine HCl Confirm 03/09/23 19:44 Diphenhydramine Hcl 50 Mg/Ml Vial Administered 03/09/23 19:45 Dose 50 mg .ROUTE .STK-MED ONE Docusate Sodium 100 mg 03/10/23 04:13 Docusate Sodium 100 Mg Capsule PO 04/09/23 04:12 BIDPRN PRN CONSTIPATION Enoxaparin Sodium 40 mg 03/10/23 10:00 03/11/23 11:34 Enoxaparin Sodium 40 Mg/0.4 Ml Syringe SQ 04/09/23 09:59 40 mg DAILY JACKY Administration Sodium Chloride 1,000 mls @ 999 mls/hr 03/09/23 19:38 03/09/23 21:26 Sodium Chloride 0.9% 1000 Ml IV 03/09/23 20:38 Infused .Q1H1M STA Infusion Sodium Chloride Confirm 03/09/23 19:45 Sodium Chloride 0.9% 1000 Ml Administered 03/09/23 19:46 Dose 1,000 mls @ ud .ROUTE .STK-MED ONE Sodium Chloride 1,000 mls @ 100 mls/hr 03/10/23 03:34 03/10/23 10:56 Sodium Chloride 0.9% 1000 Ml IV 04/09/23 03:33 Not Given .Q10H JACKY Ketorolac Tromethamine 30 mg 03/09/23 22:46 03/09/23 22:50 Ketorolac Tromethamine 30 Mg/Ml Inj IV 03/09/23 22:47 30 mg STAT ONE Administration Ketorolac Tromethamine Confirm 03/09/23 22:49 Ketorolac Tromethamine 30 Mg/Ml Inj Administered 03/09/23 22:50 Dose 30 mg .ROUTE .STK-MED ONE Ketorolac Tromethamine 30 mg 03/10/23 18:43 03/10/23 18:47 Ketorolac Tromethamine 30 Mg/Ml Inj IV 03/10/23 18:44 30 mg STAT ONE Administration Metoclopramide HCl 10 mg 03/09/23 19:39 03/09/23 19:50 Metoclopramide Hcl 10 Mg/2 Ml Vial IV 03/09/23 19:40 10 mg STAT ONE Administration Metoclopramide HCl Confirm 03/09/23 19:45 Metoclopramide Hcl 10 Mg/2 Ml Vial Administered 03/09/23 19:46 Dose 10 mg .ROUTE .STK-MED ONE Ondansetron HCl 4 mg 03/10/23 03:34 Ondansetron Hcl 4 Mg/2 Ml Vial IV 04/09/23 03:33 Q6H PRN PRN NAUSEA/VOMITING Ondansetron HCl 4 mg 03/10/23 04:13 Ondansetron Hcl 4 Mg/2 Ml Vial IV 04/09/23 04:12 Q6H PRN PRN NAUSEA/VOMITING Pantoprazole Sodium 40 mg 03/10/23 10:00 03/11/23 11:34 Pantoprazole 40 Mg Vial IV 04/09/23 09:59 40 mg Q24H10 JACKY Administration Simvastatin 40 mg 03/10/23 02:30 03/10/23 03:20 Simvastatin 20 Mg Tablet PO 03/10/23 02:31 40 mg ONCE ONE Administration Lab/Rad Data: Laboratory Result Diagrams 03/09/23 19:20 03/09/23 19:20 Laboratory Results 03/09/23 03/09/23 03/09/23 Range/Units 21:49 21:44 19:20 WBC (4.0-10.5) x10^3/uL RBC (4.1-5.6) x10^6/uL Hgb (12.5-18.0) g/dL Hct (42-50) % MCV (78-100) fL MCH (26-32) pg MCHC (32-36) g/dL RDW (11.5-14.0) % Plt Count (150-450) x10^3/uL MPV (7.5-11.0) fL Gran % (36.0-66.0) % Immature Gran % (Auto) (0.00-0.4) % Nucleat RBC Rel Count (0.00-0.1) % Eos # (Auto) (0-0.5) x10^3/uL Immature Gran # (Auto) (0.00-0.03) x10^3u/L Absolute Lymphs (auto) (1.0-4.6) x10^3/uL Absolute Monos (auto) (0.0-1.3) x10^3/uL Absolute Nucleated RBC (0.00-0.01) x10^3u/L Lymphocytes % (24.0-44.0) % Monocytes % (0.0-12.0) % Eosinophils % (0.00-5.0) % Basophils % (0.0-0.4) % Absolute Granulocytes (1.4-6.9) x10^3/uL Basophils # (0-0.4) x10^3/uL Sodium (137-145) mmol/L Potassium (3.5-5.1) mmol/L Chloride (98-107) mmol/L Carbon Dioxide (22-30) mmol/L Anion Gap (5-15) MEQ/L BUN (9-20) mg/dL Creatinine (0.66-1.25) mg/dL Estimated GFR ML/MIN Glucose (74-106) mg/dL Calcium (8.4-10.2) mg/dL Magnesium (1.6-2.3) mg/dL Total Bilirubin (0.2-1.3) mg/dL AST (17-59) U/L ALT (0-50) U/L Alkaline Phosphatase (38-126) U/L Creatine Kinase (55-170) U/L Troponin I < 0.012 (0.000-0.034) ng/mL NT-Pro-B Natriuret Pep (<300) pg/mL Serum Total Protein (6.3-8.2) g/dL Albumin (3.5-5.0) g/dL Urine Color Yellow (Yellow) Urine Appearance Clear (Clear) Urine pH 7.0 (4.6-8.0) Ur Specific [place] 1.010 (1.005-1.030) Urine Protein Negative (Negative) Urine Glucose (UA) Negative (Negative) mg/dL Urine Ketones Negative (Negative) Urine Blood Negative (Negative) Urine Nitrite Negative (Negative) Urine Bilirubin Negative (Negative) Urine Urobilinogen 1.0 A (0.2) mg/dL Ur Leukocyte Esterase Negative (Negative) U Hyaline Cast (Auto) NONE SEEN (0-2) /LPF Urine Microscopic RBC 0-2 (0-5) /HPF Urine Microscopic WBC 0-2 (0-5) /HPF Ur Epithelial Cells None Seen (None Seen) /HPF Urine Bacteria None Seen (None Seen) /HPF Urine Culture Reflexed NO (NO) Urine Opiates Level NEGATIVE (NEGATIVE) Ur Methadone NEGATIVE (NEGATIVE) Urine Barbiturates NEGATIVE (NEGATIVE) Ur Phencyclidine (PCP) NEGATIVE (NEGATIVE) Urine Amphetamine NEGATIVE (NEGATIVE) U Benzodiazepine Level NEGATIVE (NEGATIVE) Urine Cocaine NEGATIVE (NEGATIVE) Urine Marijuana (THC) NEGATIVE (NEGATIVE) 03/09/23 03/09/23 03/09/23 Range/Units 19:20 19:20 00:30 WBC 7.0 (4.0-10.5) x10^3/uL RBC 5.19 (4.1-5.6) x10^6/uL Hgb 16.1 (12.5-18.0) g/dL Hct 46.7 (42-50) % MCV 90.0 (78-100) fL MCH 31.0 (26-32) pg MCHC 34.5 (32-36) g/dL RDW 11.2 L (11.5-14.0) % Plt Count 287 (150-450) x10^3/uL MPV 10.0 (7.5-11.0) fL Gran % 58.7 (36.0-66.0) % Immature Gran % (Auto) 0.1 (0.00-0.4) % Nucleat RBC Rel Count 0.0 (0.00-0.1) % Eos # (Auto) 0.20 (0-0.5) x10^3/uL Immature Gran # (Auto) 0.01 (0.00-0.03) x10^3u/L Absolute Lymphs (auto) 2.30 (1.0-4.6) x10^3/uL Absolute Monos (auto) 0.32 (0.0-1.3) x10^3/uL Absolute Nucleated RBC 0.00 (0.00-0.01) x10^3u/L Lymphocytes % 33.0 (24.0-44.0) % Monocytes % 4.6 (0.0-12.0) % Eosinophils % 2.9 (0.00-5.0) % Basophils % 0.7 (0.0-0.4) % Absolute Granulocytes 4.09 (1.4-6.9) x10^3/uL Basophils # 0.05 (0-0.4) x10^3/uL Sodium 140 (137-145) mmol/L Potassium 3.7 (3.5-5.1) mmol/L Chloride 102 (98-107) mmol/L Carbon Dioxide 29 (22-30) mmol/L Anion Gap 13.0 (5-15) MEQ/L BUN 9 (9-20) mg/dL Creatinine 1.26 H (0.66-1.25) mg/dL Estimated GFR > 60.0 ML/MIN Glucose 110 H (74-106) mg/dL Calcium 8.8 (8.4-10.2) mg/dL Magnesium 2.3 (1.6-2.3) mg/dL Total Bilirubin 0.70 (0.2-1.3) mg/dL AST 26 (17-59) U/L ALT 23 (0-50) U/L Alkaline Phosphatase 80 (38-126) U/L Creatine Kinase 70 (55-170) U/L Troponin I < 0.012 (0.000-0.034) ng/mL NT-Pro-B Natriuret Pep < 20.0 (<300) pg/mL Serum Total Protein 7.3 (6.3-8.2) g/dL Albumin 4.4 (3.5-5.0) g/dL Urine Color (Yellow) Urine Appearance (Clear) Urine pH (4.6-8.0) Ur Specific [place] (1.005-1.030) Urine Protein (Negative) Urine Glucose (UA) (Negative) mg/dL Urine Ketones (Negative) Urine Blood (Negative) Urine Nitrite (Negative) Urine Bilirubin (Negative) Urine Urobilinogen (0.2) mg/dL Ur Leukocyte Esterase (Negative) U Hyaline Cast (Auto) (0-2) /LPF Urine Microscopic RBC (0-5) /HPF Urine Microscopic WBC (0-5) /HPF Ur Epithelial Cells (None Seen) /HPF Urine Bacteria (None Seen) /HPF Urine Culture Reflexed (NO) Urine Opiates Level (NEGATIVE) Ur Methadone (NEGATIVE) Urine Barbiturates (NEGATIVE) Ur Phencyclidine (PCP) (NEGATIVE) Urine Amphetamine (NEGATIVE) U Benzodiazepine Level (NEGATIVE) Urine Cocaine (NEGATIVE) Urine Marijuana (THC) (NEGATIVE) - Progress Progress: improved Progress Note: 03/09/23 20:34 37 years old male with history of migraines, anxiety/depression, tobacco abuse presented in the ER with chief complaint of headache with dizziness and repeated falls. Patient reports he had headaches this afternoon and around 6 PM he was walking, started to feel dizzy lightheaded and collapsed on the floor. Does not remember hitting his head. Per he was not acting himself when she got home around 6 PM. Patient reports moderate to severe sharp frontal headache with some blurry vision and nausea but no vomiting. Patient reports no numbness tingling or focal weakness. No difficulty speech. Patient also reports having chest pain earlier before headache and dizziness started. Chest pain is much improved prior to arrival in the ER. From CT head stroke protocol is obtained which is negative for any acute finding but does have CSF/arachnoid cyst which is not much change from previous studies. Patient has essentially nonfocal neuro exam. He is given symptomatic treatment for headache and fluids. Orthostatics are negative. Baseline work-up showed normal white count, fairly unremarkable chemistry but does have some ADENIKE with a baseline creatinine of 0.8 and today 1.26. Will obtain neurology consult. 03/10/23 00:38 Headache is better. Patient still feels some dizziness. Discussed with specialist on-call neurology, recommended obtaining CTA head and neck. Also discussed with hospitalist Dr. Sagastume and patient is being admitted for further evaluation and work-up. Discussed with Dr.: Other (Dr. Harrington at 12:15 AM) Will see patient in: hospital (observation) Counseled pt/family regarding: lab results, diagnosis, rad results Medical Desision Making - Independent Historian Additional History obtained from: Spouse - Discussion of managment Care discussed with:: specialist (Specialist on-call telemetry neuro at 12:25 AM.) Reviewed:: Test results Agreed on:: Treatment plan, place in obs Will see patient: in ED - Diagnostic Testing Radiological Interpretation: Interpreted by me, Reviewed by me - Risk of complications The pt has a high risk of morbidity or mortality based on: Decision regarding ho spitilization or escalation of hosp level of care - Departure Departure Disposition: Observation Clinical Impression: Dizziness, Syncope, Migraine Condition: Stable Critical Care Time: No
--- NOTE | 2023-03-09 21:12 | XRAY ---
Indication: Dizziness. Comparison: February 05, 2016 Portable chest again demonstrates normal heart, lungs, and bony thorax.
[2023-03-09 21:58] LABS: Appearance Clear (Clear); Bacteria None Seen /HPF (None Seen); Bilirubin Negative (Negative); Blood Negative (Negative); Epithelial Cells None Seen /HPF (None Seen); Glucose, Urine Negative (Negative); Hyaline Casts NONE SEEN /LPF (0-2); Ketones Negative (Negative); Leukocyte Esterase Negative (Negative); Nitrite Negative (Negative); Protein,Urine Dip Negative (Negative); RBC 0-2 /HPF (0-5); WBC 0-2 /HPF (0-5)
[2023-03-09 22:05] LABS: ADD URINE CULTURE? NO (NO)
[2023-03-09 22:05] LABS: Amphetamine,Urine NEGATIVE (NEGATIVE); Barbiturate,Urine NEGATIVE (NEGATIVE); Benzodiazepine,Urine NEGATIVE (NEGATIVE); Cocaine,Urine NEGATIVE (NEGATIVE); Methadone,Urine NEGATIVE (NEGATIVE); Opiate,Urine NEGATIVE (NEGATIVE); PCP,Urine NEGATIVE (NEGATIVE); THC,Urine NEGATIVE (NEGATIVE)
[2023-03-09] MEDS ORDERED: TORAdol 30 mg Injection IV ONE (22:46)
[2023-03-09] MEDS ORDERED: TORAdol 30 mg Injection ONE (22:49)
--- NOTE | 2023-03-10 02:28 | XRAY ---
CLINICAL HISTORY:dizziness COMPARISON:07/27/2021 and 03/09/2023 CT Head/Brain. TECHNIQUE:Contrast-enhanced CT of the brain was performed with the angiographic protocol. 3D reconstruction and the formation of cranial vessels were provided. Images were sent for PACs for interpretation. CTDI: 45mGy, ;DLP:689mGy*cm. FINDINGS: CT ANGIO HEAD: The internal carotid and cerebral arteries show normal caliber and course. Each carotid siphon is normal showing no displacement or extrinsic compression. The middle anterior cerebral arteries arise normally from the internal carotid artery on each side and appear unremarkable. No evidence of high-grade stenosis. Bilateral vertebral, basilar, and posterior vertebral arteries show normal caliber. No significant area of vascular narrowing or dilation. No evidence of arteriovenous malformation or fistulous communication was noted. CT BRAIN findings: There is no significant change in the region of CSF density along the convexity of the right high frontal region, with associated compression of the underlying right frontal lobe and scalloping of the overlying bone. It measures approximately 1.8 x 2.5 x 4.9 cm (CC x W x AP). No enhancement of the cystic lesion or filling of contrast was seen on angiographic images. No evidence of acute intracranial hemorrhage or major vascular territory infarct. The rest of the cortical sulci, fissures, basal cisterns, and ventricles are normal in size and configuration. [place]-white matter differentiation is maintained. No midline shifts or deformity. Normal CT appearance of the posterior fossa structures namely the cerebellar hemispheres, brainstem, and cerebellar peduncles. The IACs are unremarkable. The cerebello-pontine angles are clear. The pituitary gland, the pineal gland, and the optic chiasm are unremarkable. The osseous structures in the skull base are unremarkable. No definite calvarium fractures. The scanned paranasal sinuses are clear. IMPRESSION: No significant stenosis/occlusion, aneurysm, or AVM on CT angiography of the head. A relatively well-defined Region of CSF density along the convexity of the right high frontal region(as seen on prior CT), with associated compression of the underlying right frontal lobe and scalloping of the overlying bone, and no significant contrast filling or enhancement on CT angiographic images. The primary consideration is an Arachnoid cyst. MRI correlation is suggested for further evaluation. Electronically Signed by: Tara Swartz MD. (03/10/2023 01:26:11 RUST)
[2023-03-10] MEDS ORDERED: BABY ASPIRIN 81 MG CHEW PO ONE (02:29)
[2023-03-10] MEDS ORDERED: ZOCOR 20MG PO ONE (02:30)
--- NOTE | 2023-03-10 02:48 | XRAY ---
CLINICAL HISTORY:dizziness COMPARISON:Same date CT angio brain and; CT brain was reviewed. TECHNIQUE:Contrast-enhanced CT of the neck region was performed with the angiographic protocol. ;3D reconstruction and the formation of neck; vessels were provided. Images were sent for PACs for interpretation. CTDI vol: 45mGy, ;DLP:689mGy*cm. FINDINGS: Aortic arch, brachiocephalic trunk, bilateral common, internal and external carotid arteries, and vertebral arteries have normal opacification, with no evidence of dissection, significant stenosis or vascular malformation. No significant area of vascular narrowing or dilation. No evidence of arteriovenous malformation or fistulous communication was noted. No hematoma or leakage of contrast is visualized. No gross soft tissue pathology seen. IMPRESSION: No significant area of vascular narrowing or dilation within aortic arch, bilateral common, internal and external carotid arteries, and vertebral arteries. No gross soft tissue pathology seen. Electronically Signed by: Tara Swartz MD. (03/10/2023 01:46:51 HEALTH INFORMATION PROVIDER)
[2023-03-10] MEDS ORDERED: Sodium Chloride 0.9% 1000 ML 1,000 ML IV SCH (03:34)
[2023-03-10] MEDS ORDERED: DUONEB 0.5-3 MG/3 ml Neb IH PRN (03:34)
[2023-03-10] MEDS ORDERED: Zofran 4 MG/2 ML VIAL IV PRN ×2 (03:34→04:13)
[2023-03-10] MEDS ORDERED: TYLENOL 325 MG PO PRN (03:34)
[2023-03-10] MEDS ORDERED: Docusate Sodium 100 MG PO PRN (04:13)
[2023-03-10] MEDS ORDERED: FEVERALL 650 MG PR PRN (04:13)
--- NOTE | 2023-03-10 04:20 | PCM.HP ---
History of Present Illness - Chief Complaint Chief Complaint: Dizziness, migraine, syncope Date: 03/10/23 History of Present Illness: This is a 37-year-old male admitted for evaluation of syncope. He has past medical history of migraines, anxiety/depression. He presented to the ED tonight for evaluation of episode of syncope. He reports feeling lightheaded, dizziness and chest discomfort. Per family he collapsed and he does not recall anything until he was in the ER. He reports associated HALE. Currently he reports a groggy feeling but denies any SOB, CP. He denies any history of seizures and reports was in his normal state of jorge prior to the event. Initial vital signs temp was 98.1, heart rate 85, respiratory 21, blood pressure 158/111, sat 97%. Labs significant for WBC 7, sodium 140, creatinine 1.2, glucose 110, troponin negative, CK 70, BNP negative, UA unremarkable, tox screen negative. CT head showed region of CSF density along the convexity of the right high frontal region with associated compression of the underlying right frontal lobe and scalloping of the overlying bone measuring 1.8 x 2.5 x 4.9 cm primary consideration was arachnoid cyst and CT angio of head was negative for any acute abnormality. Chest x-ray negative for acute pathology. In the ED patient received Tylenol, aspirin, Benadryl, Toradol, Reglan, Zocor, with 1 L of NS. - Review of Systems All Other Systems: Reviewed and Negative Medications & Allergies Home Medications: Home Medication List Escitalopram Oxalate [Lexapro] 30 mg PO HS 03/09/23 [History Confirmed 03/09/23] Allergies/Adverse Reactions: Allergies Allergy/AdvReac Type Severity Reaction Status Date / Time erythromycin base Allergy Hives Verified 03/09/23 19:12 - Past Medical History Past Medical History: Yes Neurological History: Migraines ENT History: No Pertinent History Cardiac History: No Pertinent History Respiratory History: No Pertinent History Endocrine Medical History: No Pertinent History Musculoskelatal History: No Pertinent History GI Medical History: No Pertinent History History: No Pertinent History Pyscho-Social History: Depression Male Reproductive Disorders: No Pertinent History Comment: weakness recently- pt states he has been going thru testing - Past Surgical History Past Surgical History: Yes Neuro Surgical History: No Pertinent History Cardiac History: No Pertinent History Respiratory Surgery: No Pertinent History GI Surgical History: Hernia Repair Genitourinary Surgical Hx: No Pertinent History Musculskeletal Surgical Hx: Orthopedic Surgery Male Surgical History: No Pertinent History Other Surgical History: acl repair. back surgery - Social History Smoking Status: Former smoker Exposure to second hand smoke: No Alcohol: None Drug Use: none Significant Family History: no pertinent family hx - Physical Exam Vital Signs: Vital Signs - 24 hr Temp Pulse Resp BP BP Pulse Ox 03/10/23 03:41 97.4 F 43 L 18 138/84 98 03/10/23 03:00 44 L 13 123/89 98 03/10/23 02:30 68 13 116/79 98 03/10/23 02:00 42 L 12 125/87 98 03/10/23 01:30 48 L 16 133/90 99 03/10/23 00:45 98 03/10/23 00:00 44 L 16 125/88 99 03/09/23 23:30 43 L 18 114/83 97 03/09/23 23:00 47 L 14 121/84 98 03/09/23 22:30 45 L 15 108/75 98 03/09/23 22:00 51 L 14 126/81 97 03/09/23 21:30 53 L 14 108/73 97 03/09/23 21:00 53 L 15 119/84 98 03/09/23 20:30 51 L 18 127/83 97 03/09/23 20:00 59 L 17 123/82 98 03/09/23 19:37 76 17 146/104 97 03/09/23 19:28 76 18 162/114 98 03/09/23 19:14 98.1 F 85 21 158/111 97 General Appearance: no apparent distress Neurologic Exam: alert, oriented x 3 Eye Exam: PERRL/EOMI Ears, Nose, Throat Exam: normal ENT inspection Neck Exam: normal inspection Respiratory Exam: normal breath sounds Cardiovascular Exam: regular rate/rhythm Gastrointestinal/Abdomen Exam: soft, normal bowel sounds Extremity Exam: normal inspection Results - Labs Lab/Micro Results: Lab Results-Last 24 Hours 03/09/23 03/09/23 03/09/23 Range/Units 00:30 19:20 19:20 WBC 7.0 (4.0-10.5) x10^3/uL RBC 5.19 (4.1-5.6) x10^6/uL Hgb 16.1 (12.5-18.0) g/dL Hct 46.7 (42-50) % MCV 90.0 (78-100) fL MCH 31.0 (26-32) pg MCHC 34.5 (32-36) g/dL RDW 11.2 L (11.5-14.0) % Plt Count 287 (150-450) x10^3/uL MPV 10.0 (7.5-11.0) fL Gran % 58.7 (36.0-66.0) % Immature Gran % (Auto) 0.1 (0.00-0.4) % Nucleat RBC Rel Count 0.0 (0.00-0.1) % Eos # (Auto) 0.20 (0-0.5) x10^3/uL Immature Gran # (Auto) 0.01 (0.00-0.03) x10^3u/L Absolute Lymphs (auto) 2.30 (1.0-4.6) x10^3/uL Absolute Monos (auto) 0.32 (0.0-1.3) x10^3/uL Absolute Nucleated RBC 0.00 (0.00-0.01) x10^3u/L Lymphocytes % 33.0 (24.0-44.0) % Monocytes % 4.6 (0.0-12.0) % Eosinophils % 2.9 (0.00-5.0) % Basophils % 0.7 (0.0-0.4) % Absolute Granulocytes 4.09 (1.4-6.9) x10^3/uL Basophils # 0.05 (0-0.4) x10^3/uL Sodium 140 (137-145) mmol/L Potassium 3.7 (3.5-5.1) mmol/L Chloride 102 (98-107) mmol/L Carbon Dioxide 29 (22-30) mmol/L Anion Gap 13.0 (5-15) MEQ/L BUN 9 (9-20) mg/dL Creatinine 1.26 H (0.66-1.25) mg/dL Estimated GFR > 60.0 ML/MIN Glucose 110 H (74-106) mg/dL Calcium 8.8 (8.4-10.2) mg/dL Magnesium 2.3 (1.6-2.3) mg/dL Total Bilirubin 0.70 (0.2-1.3) mg/dL AST 26 (17-59) U/L ALT 23 (0-50) U/L Alkaline Phosphatase 80 (38-126) U/L Creatine Kinase 70 (55-170) U/L Troponin I < 0.012 (0.000-0.034) ng/mL NT-Pro-B Natriuret Pep < 20.0 (<300) pg/mL Serum Total Protein 7.3 (6.3-8.2) g/dL Albumin 4.4 (3.5-5.0) g/dL Urine Color (Yellow) Urine Appearance (Clear) Urine pH (4.6-8.0) Ur Specific [place] (1.005-1.030) Urine Protein (Negative) Urine Glucose (UA) (Negative) mg/dL Urine Ketones (Negative) Urine Blood (Negative) Urine Nitrite (Negative) Urine Bilirubin (Negative) Urine Urobilinogen (0.2) mg/dL Ur Leukocyte Esterase (Negative) U Hyaline Cast (Auto) (0-2) /LPF Urine Microscopic RBC (0-5) /HPF Urine Microscopic WBC (0-5) /HPF Ur Epithelial Cells (None Seen) /HPF Urine Bacteria (None Seen) /HPF Urine Culture Reflexed (NO) Urine Opiates Level (NEGATIVE) Ur Methadone (NEGATIVE) Urine Barbiturates (NEGATIVE) Ur Phencyclidine (PCP) (NEGATIVE) Urine Amphetamine (NEGATIVE) U Benzodiazepine Level (NEGATIVE) Urine Cocaine (NEGATIVE) Urine Marijuana (THC) (NEGATIVE) 03/09/23 03/09/23 03/09/23 Range/Units 19:20 21:44 21:49 WBC (4.0-10.5) x10^3/uL RBC (4.1-5.6) x10^6/uL Hgb (12.5-18.0) g/dL Hct (42-50) % MCV (78-100) fL MCH (26-32) pg MCHC (32-36) g/dL RDW (11.5-14.0) % Plt Count (150-450) x10^3/uL MPV (7.5-11.0) fL Gran % (36.0-66.0) % Immature Gran % (Auto) (0.00-0.4) % Nucleat RBC Rel Count (0.00-0.1) % Eos # (Auto) (0-0.5) x10^3/uL Immature Gran # (Auto) (0.00-0.03) x10^3u/L Absolute Lymphs (auto) (1.0-4.6) x10^3/uL Absolute Monos (auto) (0.0-1.3) x10^3/uL Absolute Nucleated RBC (0.00-0.01) x10^3u/L Lymphocytes % (24.0-44.0) % Monocytes % (0.0-12.0) % Eosinophils % (0.00-5.0) % Basophils % (0.0-0.4) % Absolute Granulocytes (1.4-6.9) x10^3/uL Basophils # (0-0.4) x10^3/uL Sodium (137-145) mmol/L Potassium (3.5-5.1) mmol/L Chloride (98-107) mmol/L Carbon Dioxide (22-30) mmol/L Anion Gap (5-15) MEQ/L BUN (9-20) mg/dL Creatinine (0.66-1.25) mg/dL Estimated GFR ML/MIN Glucose (74-106) mg/dL Calcium (8.4-10.2) mg/dL Magnesium (1.6-2.3) mg/dL Total Bilirubin (0.2-1.3) mg/dL AST (17-59) U/L ALT (0-50) U/L Alkaline Phosphatase (38-126) U/L Creatine Kinase (55-170) U/L Troponin I < 0.012 (0.000-0.034) ng/mL NT-Pro-B Natriuret Pep (<300) pg/mL Serum Total Protein (6.3-8.2) g/dL Albumin (3.5-5.0) g/dL Urine Color Yellow (Yellow) Urine Appearance Clear (Clear) Urine pH 7.0 (4.6-8.0) Ur Specific [place] 1.010 (1.005-1.030) Urine Protein Negative (Negative) Urine Glucose (UA) Negative (Negative) mg/dL Urine Ketones Negative (Negative) Urine Blood Negative (Negative) Urine Nitrite Negative (Negative) Urine Bilirubin Negative (Negative) Urine Urobilinogen 1.0 A (0.2) mg/dL Ur Leukocyte Esterase Negative (Negative) U Hyaline Cast (Auto) NONE SEEN (0-2) /LPF Urine Microscopic RBC 0-2 (0-5) /HPF Urine Microscopic WBC 0-2 (0-5) /HPF Ur Epithelial Cells None Seen (None Seen) /HPF Urine Bacteria None Seen (None Seen) /HPF Urine Culture Reflexed NO (NO) Urine Opiates Level NEGATIVE (NEGATIVE) Ur Methadone NEGATIVE (NEGATIVE) Urine Barbiturates NEGATIVE (NEGATIVE) Ur Phencyclidine (PCP) NEGATIVE (NEGATIVE) Urine Amphetamine NEGATIVE (NEGATIVE) U Benzodiazepine Level NEGATIVE (NEGATIVE) Urine Cocaine NEGATIVE (NEGATIVE) Urine Marijuana (THC) NEGATIVE (NEGATIVE) - Radiology Impressions Radiology Exams & Impressions: Radiology Procedures Category Date Time Status CHEST 1 VIEW (PORTABLE) Stat Exams 03/09/23 19:[address] ANGIOGRAPHY NECK [CT] Stat Exams 03/10/23 00:36 Completed CTA HEAD W AND/OR WO CONTRAST [CT] Stat Exams 03/10/23 00:36 Completed ECHO W/2D AND DOPPLER [US] Routine Exams 03/10/23 04:14 Ordered HEAD WITHOUT CONTRAST [CT] Stat Exams 03/09/23 19:10 Completed MRI BRAIN W/O CONTRAST [MRI] Routine Exams 03/10/23 04:12 Ordered Assessment/Plan (1) Dizziness Current Visit: Yes Status: Acute Code(s): R42 - DIZZINESS AND GIDDINESS (2) Migraine Current Visit: Yes Status: Acute Code(s): G43.909 - MIGRAINE, UNSP, NOT INTRACTABLE, WITHOUT STATUS MIGRAINOSUS (3) Syncope Current Visit: Yes Status: Acute Assessment & Plan: ASSESSMENT #Syncope #Dizziness #Possible arachnoid cyst #History of migraines #History of anxiety and depression PLAN -Follow neuro exam -MRI brain -Monitor on telemetry -Neurology consulted -Continue Lexapro Prophylaxis Lovenox Entire encounter performed via telemedicine Code(s): R55 - SYNCOPE AND COLLAPSE Telemedicine Encounter - Telemedicine Encounter Telemedicine Encounter: The entirety of this encounter was performed via Telemedicine"
[2023-03-10 05:15] LABS: Absolute Neutrophil Ct (ANC) 2.79 x10^3/uL (1.4-6.9); BASOPHIL % 0.7 % (0.0-0.4); Basophil (Absolute #) 0.04 x10^3/uL (0-0.4); Eosinophil % 4.6 % (0.00-5.0); Eosinophil (Absolute #) 0.28 x10^3/uL (0-0.5); Hematocrit 41.7 % (42-50); Hemoglobin 14.2 g/dL (12.5-18.0); IMMATURE GRAN # 0.01 x10^3u/L (0.00-0.03); IMMATURE GRAN % 0.2 % (0.00-0.4); Lymphocyte (Absolute #) 2.69 x10^3/uL (1.0-4.6); Lymphocytes % 43.9 % (24.0-44.0); Mean Cell Volume 90.7 fL (78-100); Mean Corpuscular Hemoglobin 30.9 pg (26-32); Mean Corpuscular Hgb Concent. 34.1 g/dL (32-36); Mean Platelet Volume 10.3 fL (7.5-11.0); Monocyte (Absolute #) 0.32 x10^3/uL (0.0-1.3); Monocytes % 5.2 % (0.0-12.0); Neutrophil % 45.4 % (36.0-66.0); Platelet Count 240 x10^3/uL (150-450); Red Cell Distribution Width 11.7 % (11.5-14.0); White Blood Count 6.1 x10^3/uL (4.0-10.5)
[2023-03-10 06:10] LABS: ALBUMIN 3.6 g/dL (3.5-5.0); ALKALINE PHOSPHATASE 72 U/L (38-126); ANION GAP 10.2 MEQ/L (5-15); BLOOD UREA NITROGEN 10 mg/dL (9-20); CHLORIDE 105 mmol/L (98-107); Calcium 8.4 mg/dL (8.4-10.2); Carbon Dioxide 28 mmol/L (22-30); Creatinine 1 0.94 mg/dL (0.66-1.25); EST GLOMERULAR FILTRATION RATE > 60.0 ML/MIN; Glucose 91 mg/dL (74-106); Potassium 4.1 mmol/L (3.5-5.1); SGOT/AST 21 U/L (17-59); SGPT/ALT 19 U/L (0-50); SODIUM 139 mmol/L (137-145); Total Protein 6.2 g/dL (6.3-8.2)
[2023-03-10] MEDS: ENOXAPARIN SODIUM SQ SCH (09:53)
[2023-03-10] MEDS: PROTONIX 40 MG IV IV SCH (09:53)
--- NOTE | 2023-03-10 16:31 | XRAY ---
CLINICAL HISTORY:Syncope, dizziness COMPARISON:Compared with prior CT Brain 03/09/2023. TECHNIQUE:Different pulse sequences were performed in different planes without IV contrast for the brain. Images were sent through PACs for interpretation. FINDINGS: Stable CSF density lesion along the convexity of the right superior frontal region with mild associated compression of the adjacent right frontal cortex and scalloping of the overlying bone. It measures 1.5 x 1.3 x 3.4 cm (CC x W x AP) dimensions. It shows free diffusion on ADC images. This most likely represents arachnoid cyst. Normal MRI appearance of the cerebral and cerebellar parenchymal signals. Normal MRI appearance of different anatomical parts of the brain stem namely the midbrain, ezequiel, medulla oblongata. Normal MRI appearance of the petrous temporal bones, brainstem, vestibule cochlear nerves, cerebellopontine angles with no definite masses. Signal drop out is seen in the pineal region on GRE images, suggestive of calcifications. No shift of midline structures. No intracerebral or extra-axial hematomas or masses. Normal MRI appearance of orbital structures, both globes, optic nerves, optic chiasm, optic tracts and optic radiations. IMPRESSION: 1. Stable CSF density lesion along the convexity of the right superior frontal region likely represents arachnoid cyst. It is associated with mild compression of the adjacent right frontal cortex and scalloping of the overlying bone. 2. Rest of the brain parenchyma appears grossly unremarkable. Electronically Signed by: Tara Swartz MD. (03/10/2023 15:30:40 [employer])
--- NOTE | 2023-03-10 16:54 | PCM.NOTE ---
Date and Time: 03/10/23 7095 Subjective Assessment: This is a 37-year-old male admitted for evaluation of syncope. He has past medical history of migraines, anxiety/depression. He presented to the ED on 03/10/23 for evaluation of episode of syncope. He reported feeling lightheaded, dizziness and chest discomfort. Per family he collapsed and he does not recall anything until he was in the ER. He reports associated HALE. Currently he reports a groggy feeling but denies any SOB, CP. He denies any history of seizures and reports was in his normal state of jorge prior to the event. CT head showed region of CSF density along the convexity of the right high frontal region with associated compression of the underlying right frontal lobe and scalloping of the overlying bone measuring 1.8 x 2.5 x 4.9 cm primary consideration was arachnoid cyst and CT angio of head was negative for any acute abnormality. Chest x-ray negative for acute pathology. MRI of brain showed stable CSF denisity lesion along the convexity of the right superior frontal region liekly represents arachnoid cyst. It is asscoiated with mild compression of the ad jacent right frontal cortex and scalloping of the overlying bone. Rest of brain parenchyma appears grossly unremarkable. He has been asymptomatic since admission. An echo is pending. - Review of Systems Constitutional: No Fever, No Chills Eyes: No Symptoms Ears, Nose, & Throat: No Symptoms Respiratory: No Cough, No Short Of Breath Cardiac: No Chest Pain, No Edema, No Syncope Abdominal/Gastrointestinal: No Abdominal Pain, No Nausea, No Vomiting, No Diarrhea Genitourinary Symptoms: No Dysuria Musculoskeletal: No Back Pain, No Neck Pain Skin: No Rash Neurological: No Dizziness, No Focal Weakness, No Sensory Changes Psychological: No Symptoms Endocrine: No Symptoms Hematologic/Lymphatic: No Symptoms Immunological/Allergic: No Symptoms Objective Exam General Appearance: no apparent distress, alert Neurologic Exam: alert, oriented x 3, cooperative, normal mood/affect, nml cerebellar function, sensation nml, No motor deficits Skin Exam: normal color, warm, dry Eye Exam: PERRL, EOMI, eyes nml inspection Ears, Nose, Throat Exam: normal ENT inspection, pharynx normal, moist mucous membranes Neck Exam: normal inspection, non-tender, supple, full range of motion Respiratory Exam: normal breath sounds, lungs clear, No respiratory distress Cardiovascular Exam: regular rate/rhythm, normal heart sounds Gastrointestinal/Abdomen Exam: soft, No tenderness, No mass Extremity Exam: normal inspection, normal range of motion Back Exam: normal inspection, normal range of motion, No CVA tenderness, No vertebral tenderness Male Genitalia Exam: deferred Rectal Exam: deferred OBJECTIVE DATA Vital Signs: Vital Signs - 24 hr Temp Pulse Resp BP BP Pulse Ox 03/10/23 16:00 97.7 F 52 L 17 127/70 100 03/10/23 15:45 18 03/10/23 12:00 18 03/10/23 11:53 97.8 F 78 17 122/76 96 03/10/23 08:00 18 03/10/23 06:56 97.3 F 46 L 17 119/75 97 03/10/23 05:37 43 L 18 98 03/10/23 03:41 97.4 F 43 L 18 138/84 98 03/10/23 03:00 44 L 13 123/89 98 03/10/23 02:30 68 13 116/79 98 03/10/23 02:00 42 L 12 125/87 98 03/10/23 01:30 48 L 16 133/90 99 03/10/23 00:45 98 03/10/23 00:00 44 L 16 125/88 99 03/09/23 23:30 43 L 18 114/83 97 03/09/23 23:00 47 L 14 121/84 98 03/09/23 22:30 45 L 15 108/75 98 03/09/23 22:00 51 L 14 126/81 97 03/09/23 21:30 53 L 14 108/73 97 03/09/23 21:00 53 L 15 119/84 98 03/09/23 20:30 51 L 18 127/83 97 03/09/23 20:00 59 L 17 123/82 98 03/09/23 19:37 76 17 146/104 97 03/09/23 19:28 76 18 162/114 98 03/09/23 19:14 98.1 F 85 21 158/111 97 Pain Assessment - Last Documented Pain Intensity 2 Pain Scale Used 0-10 Pain Scale Intake and Output: Intake & Output 03/08/23 03/09/23 03/10/23 03/11/23 11:59 11:59 11:59 11:59 Intake Total 100 Balance 100 Weight 67.5 kg Lab Results: Lab Results-Last 24 Hours 03/09/23 03/09/23 03/09/23 Range/Units 00:30 19:20 19:20 WBC 7.0 (4.0-10.5) x10^3/uL RBC 5.19 (4.1-5.6) x10^6/uL Hgb 16.1 (12.5-18.0) g/dL Hct 46.7 (42-50) % MCV 90.0 (78-100) fL MCH 31.0 (26-32) pg MCHC 34.5 (32-36) g/dL RDW 11.2 L (11.5-14.0) % Plt Count 287 (150-450) x10^3/uL MPV 10.0 (7.5-11.0) fL Gran % 58.7 (36.0-66.0) % Immature Gran % (Auto) 0.1 (0.00-0.4) % Nucleat RBC Rel Count 0.0 (0.00-0.1) % Eos # (Auto) 0.20 (0-0.5) x10^3/uL Immature Gran # (Auto) 0.01 (0.00-0.03) x10^3u/L Absolute Lymphs (auto) 2.30 (1.0-4.6) x10^3/uL Absolute Monos (auto) 0.32 (0.0-1.3) x10^3/uL Absolute Nucleated RBC 0.00 (0.00-0.01) x10^3u/L Lymphocytes % 33.0 (24.0-44.0) % Monocytes % 4.6 (0.0-12.0) % Eosinophils % 2.9 (0.00-5.0) % Basophils % 0.7 (0.0-0.4) % Absolute Granulocytes 4.09 (1.4-6.9) x10^3/uL Basophils # 0.05 (0-0.4) x10^3/uL Sodium 140 (137-145) mmol/L Potassium 3.7 (3.5-5.1) mmol/L Chloride 102 (98-107) mmol/L Carbon Dioxide 29 (22-30) mmol/L Anion Gap 13.0 (5-15) MEQ/L BUN 9 (9-20) mg/dL Creatinine 1.26 H (0.66-1.25) mg/dL Estimated GFR > 60.0 ML/MIN Glucose 110 H (74-106) mg/dL Calcium 8.8 (8.4-10.2) mg/dL Magnesium 2.3 (1.6-2.3) mg/dL Total Bilirubin 0.70 (0.2-1.3) mg/dL AST 26 (17-59) U/L ALT 23 (0-50) U/L Alkaline Phosphatase 80 (38-126) U/L Creatine Kinase 70 (55-170) U/L Troponin I < 0.012 (0.000-0.034) ng/mL NT-Pro-B Natriuret Pep < 20.0 (<300) pg/mL Serum Total Protein 7.3 (6.3-8.2) g/dL Albumin 4.4 (3.5-5.0) g/dL Urine Color (Yellow) Urine Appearance (Clear) Urine pH (4.6-8.0) Ur Specific [place] (1.005-1.030) Urine Protein (Negative) Urine Glucose (UA) (Negative) mg/dL Urine Ketones (Negative) Urine Blood (Negative) Urine Nitrite (Negative) Urine Bilirubin (Negative) Urine Urobilinogen (0.2) mg/dL Ur Leukocyte Esterase (Negative) U Hyaline Cast (Auto) (0-2) /LPF Urine Microscopic RBC (0-5) /HPF Urine Microscopic WBC (0-5) /HPF Ur Epithelial Cells (None Seen) /HPF Urine Bacteria (None Seen) /HPF Urine Culture Reflexed (NO) Urine Opiates Level (NEGATIVE) Ur Methadone (NEGATIVE) Urine Barbiturates (NEGATIVE) Ur Phencyclidine (PCP) (NEGATIVE) Urine Amphetamine (NEGATIVE) U Benzodiazepine Level (NEGATIVE) Urine Cocaine (NEGATIVE) Urine Marijuana (THC) (NEGATIVE) 03/09/23 03/09/23 03/09/23 Range/Units 19:20 21:44 21:49 WBC (4.0-10.5) x10^3/uL RBC (4.1-5.6) x10^6/uL Hgb (12.5-18.0) g/dL Hct (42-50) % MCV (78-100) fL MCH (26-32) pg MCHC (32-36) g/dL RDW (11.5-14.0) % Plt Count (150-450) x10^3/uL MPV (7.5-11.0) fL Gran % (36.0-66.0) % Immature Gran % (Auto) (0.00-0.4) % Nucleat RBC Rel Count (0.00-0.1) % Eos # (Auto) (0-0.5) x10^3/uL Immature Gran # (Auto) (0.00-0.03) x10^3u/L Absolute Lymphs (auto) (1.0-4.6) x10^3/uL Absolute Monos (auto) (0.0-1.3) x10^3/uL Absolute Nucleated RBC (0.00-0.01) x10^3u/L Lymphocytes % (24.0-44.0) % Monocytes % (0.0-12.0) % Eosinophils % (0.00-5.0) % Basophils % (0.0-0.4) % Absolute Granulocytes (1.4-6.9) x10^3/uL Basophils # (0-0.4) x10^3/uL Sodium (137-145) mmol/L Potassium (3.5-5.1) mmol/L Chloride (98-107) mmol/L Carbon Dioxide (22-30) mmol/L Anion Gap (5-15) MEQ/L BUN (9-20) mg/dL Creatinine (0.66-1.25) mg/dL Estimated GFR ML/MIN Glucose (74-106) mg/dL Calcium (8.4-10.2) mg/dL Magnesium (1.6-2.3) mg/dL Total Bilirubin (0.2-1.3) mg/dL AST (17-59) U/L ALT (0-50) U/L Alkaline Phosphatase (38-126) U/L Creatine Kinase (55-170) U/L Troponin I < 0.012 (0.000-0.034) ng/mL NT-Pro-B Natriuret Pep (<300) pg/mL Serum Total Protein (6.3-8.2) g/dL Albumin (3.5-5.0) g/dL Urine Color Yellow (Yellow) Urine Appearance Clear (Clear) Urine pH 7.0 (4.6-8.0) Ur Specific [place] 1.010 (1.005-1.030) Urine Protein Negative (Negative) Urine Glucose (UA) Negative (Negative) mg/dL Urine Ketones Negative (Negative) Urine Blood Negative (Negative) Urine Nitrite Negative (Negative) Urine Bilirubin Negative (Negative) Urine Urobilinogen 1.0 A (0.2) mg/dL Ur Leukocyte Esterase Negative (Negative) U Hyaline Cast (Auto) NONE SEEN (0-2) /LPF Urine Microscopic RBC 0-2 (0-5) /HPF Urine Microscopic WBC 0-2 (0-5) /HPF Ur Epithelial Cells None Seen (None Seen) /HPF Urine Bacteria None Seen (None Seen) /HPF Urine Culture Reflexed NO (NO) Urine Opiates Level NEGATIVE (NEGATIVE) Ur Methadone NEGATIVE (NEGATIVE) Urine Barbiturates NEGATIVE (NEGATIVE) Ur Phencyclidine (PCP) NEGATIVE (NEGATIVE) Urine Amphetamine NEGATIVE (NEGATIVE) U Benzodiazepine Level NEGATIVE (NEGATIVE) Urine Cocaine NEGATIVE (NEGATIVE) Urine Marijuana (THC) NEGATIVE (NEGATIVE) 03/10/23 03/10/23 Range/Units 04:25 04:25 WBC 6.1 (4.0-10.5) x10^3/uL RBC 4.60 (4.1-5.6) x10^6/uL Hgb 14.2 (12.5-18.0) g/dL Hct 41.7 L (42-50) % MCV 90.7 (78-100) fL MCH 30.9 (26-32) pg MCHC 34.1 (32-36) g/dL RDW 11.7 (11.5-14.0) % Plt Count 240 (150-450) x10^3/uL MPV 10.3 (7.5-11.0) fL Gran % 45.4 (36.0-66.0) % Immature Gran % (Auto) 0.2 (0.00-0.4) % Nucleat RBC Rel Count 0.0 (0.00-0.1) % Eos # (Auto) 0.28 (0-0.5) x10^3/uL Immature Gran # (Auto) 0.01 (0.00-0.03) x10^3u/L Absolute Lymphs (auto) 2.69 (1.0-4.6) x10^3/uL Absolute Monos (auto) 0.32 (0.0-1.3) x10^3/uL Absolute Nucleated RBC 0.00 (0.00-0.01) x10^3u/L Lymphocytes % 43.9 (24.0-44.0) % Monocytes % 5.2 (0.0-12.0) % Eosinophils % 4.6 (0.00-5.0) % Basophils % 0.7 (0.0-0.4) % Absolute Granulocytes 2.79 (1.4-6.9) x10^3/uL Basophils # 0.04 (0-0.4) x10^3/uL Sodium 139 (137-145) mmol/L Potassium 4.1 (3.5-5.1) mmol/L Chloride 105 (98-107) mmol/L Carbon Dioxide 28 (22-30) mmol/L Anion Gap 10.2 (5-15) MEQ/L BUN 10 (9-20) mg/dL Creatinine 0.94 (0.66-1.25) mg/dL Estimated GFR > 60.0 ML/MIN Glucose 91 (74-106) mg/dL Calcium 8.4 (8.4-10.2) mg/dL Magnesium (1.6-2.3) mg/dL Total Bilirubin 0.80 (0.2-1.3) mg/dL AST 21 (17-59) U/L ALT 19 (0-50) U/L Alkaline Phosphatase 72 (38-126) U/L Creatine Kinase (55-170) U/L Troponin I (0.000-0.034) ng/mL NT-Pro-B Natriuret Pep (<300) pg/mL Serum Total Protein 6.2 L (6.3-8.2) g/dL Albumin 3.6 (3.5-5.0) g/dL Urine Color (Yellow) Urine Appearance (Clear) Urine pH (4.6-8.0) Ur Specific [place] (1.005-1.030) Urine Protein (Negative) Urine Glucose (UA) (Negative) mg/dL Urine Ketones (Negative) Urine Blood (Negative) Urine Nitrite (Negative) Urine Bilirubin (Negative) Urine Urobilinogen (0.2) mg/dL Ur Leukocyte Esterase (Negative) U Hyaline Cast (Auto) (0-2) /LPF Urine Microscopic RBC (0-5) /HPF Urine Microscopic WBC (0-5) /HPF Ur Epithelial Cells (None Seen) /HPF Urine Bacteria (None Seen) /HPF Urine Culture Reflexed (NO) Urine Opiates Level (NEGATIVE) Ur Methadone (NEGATIVE) Urine Barbiturates (NEGATIVE) Ur Phencyclidine (PCP) (NEGATIVE) Urine Amphetamine (NEGATIVE) U Benzodiazepine Level (NEGATIVE) Urine Cocaine (NEGATIVE) Urine Marijuana (THC) (NEGATIVE) Radiology Exams: Radiology Procedures Category Date Time Status CHEST 1 VIEW (PORTABLE) Stat Exams 03/09/23 19:[address] ANGIOGRAPHY NECK [CT] Stat Exams 03/10/23 00:36 Completed CTA HEAD W AND/OR WO CONTRAST [CT] Stat Exams 03/10/23 00:36 Completed ECHO W/2D AND DOPPLER [US] Routine Exams 03/10/23 04:14 Taken HEAD WITHOUT CONTRAST [CT] Stat Exams 03/09/23 19:10 Completed MRI BRAIN W/O CONTRAST [MRI] Stat Exams 03/10/23 04:12 Completed Assessment/Plan (1) Dizziness Current Visit: Yes Status: Acute Code(s): R42 - DIZZINESS AND GIDDINESS (2) Migraine Current Visit: Yes Status: Acute Code(s): G43.909 - MIGRAINE, UNSP, NOT INTRACTABLE, WITHOUT STATUS MIGRAINOSUS (3) Syncope Current Visit: Yes Status: Acute Code(s): R55 - SYNCOPE AND COLLAPSE Telemedicine Encounter - Telemedicine Encounter Telemedicine Encounter: 1. Dizziness - stable - tele - echo pending 2. Migraine with hx - resolved 3. Syncope - neurology consulted- reviwed note and agree with plan of care - CT and MRI reviwed - Possible arachnoid cyst - Echo pending - neurology exam non-concerning - F/u with neurology OP 4. History of anxiety and depression - No current need for meds DVT Prophylaxis Lovenox PPI Protonix POA: none listed Code status: Full
[2023-03-10] MEDS ORDERED: TORAdol 30 mg Injection IV ONE (18:43)
--- NOTE | 2023-03-11 07:33 | PCM.DS ---
Discharge Summary Date of Admission: 03/10/23 03:31 Date of Discharge: 03/11/23 Admitting Physician: JOHNSON CABALLERO MD Consults: Consults on Case 03/09/23 20:10 Tele-Health Consult ROUTINE Primary Care Provider: EDELMIRA AGUAYO DOMINIC Allergies Allergies erythromycin base Allergy (Verified 03/09/23 19:12) [facility] Summary - Hospital Course Hospital Course: This is a 37-year-old male admitted for evaluation of syncope. He has past medical history of migraines, anxiety/depression. He presented to the ED on 03/10/23 for evaluation of episode of syncope. He reported feeling lightheaded, dizziness and chest discomfort. Per family he collapsed and he does not recall anything until he was in the ER. He reports associated HALE. Currently he reports a groggy feeling but denies any SOB, CP. He denies any history of seizures and reports was in his normal state of jorge prior to the event. CT head showed region of CSF density along the convexity of the right high frontal region with associated compression of the underlying right frontal lobe and scalloping of the overlying bone measuring 1.8 x 2.5 x 4.9 cm primary consideration was arachnoid cyst and CT angio of head was negative for any acute abnormality. Chest x-ray negative for acute pathology. MRI of brain showed stable CSF density lesion along the convexity of the right superior frontal region liekly represents arachnoid cyst. It is associated with mild compression of the adjacent right frontal cortex and scalloping of the overlying bone. Rest of brain parenchyma appears grossly unremarkable. He has been asymptomatic since admission. An echo is pending and he can f/u OP for the results with PCP. An a ppointment has been made to follow up with neurosurgery OP. - Vitals & Intake/Output Vital Signs: Vital Signs Temperature 97.6 F 03/11/23 06:55 Pulse Rate 56 L 03/11/23 06:55 Respiratory Rate 15 03/11/23 06:55 Blood Pressure 115/60 03/11/23 06:55 O2 Sat by Pulse Oximetry 98 03/11/23 06:55 Intake & Output: Intake & Output 03/08/23 03/09/23 03/10/23 03/11/23 11:59 11:59 11:59 11:59 Intake Total 100 423 Balance 100 423 Weight 67.5 kg 67.6 kg - Lab Result Diagrams: 03/10/23 04:25 03/10/23 04:25 - Radiology Exams Ordered Rad Exams-Entire Visit: Radiology Procedures Category Date Time Status CHEST 1 VIEW (PORTABLE) Stat Exams 03/09/23 19:[address] ANGIOGRAPHY NECK [CT] Stat Exams 03/10/23 00:36 Completed CTA HEAD W AND/OR WO CONTRAST [CT] Stat Exams 03/10/23 00:36 Completed ECHO W/2D AND DOPPLER [US] Routine Exams 03/10/23 04:14 Taken HEAD WITHOUT CONTRAST [CT] Stat Exams 03/09/23 19:10 Completed MRI BRAIN W/O CONTRAST [MRI] Stat Exams 03/10/23 04:12 Completed - Procedures and Test Procedures and Tests throughout Hospitalization: Therapy Orders & Screens 03/10/23 05:37 Respiratory Therapy Assessment DAILY Comment: Diagnosis: Dizziness, migraine, syncope Discharge Exam General Appearance: no apparent distress, alert Neurologic Exam: alert, oriented x 3, cooperative, normal mood/affect, nml cerebellar function, sensation nml, No motor deficits Eye Exam: PERRL, EOMI, eyes nml inspection Ears, Nose, Throat Exam: normal ENT inspection, pharynx normal, moist mucous me mbranes Neck Exam: normal inspection, non-tender, supple, full range of motion Respiratory Exam: normal breath sounds, lungs clear, No respiratory distress Cardiovascular Exam: regular rate/rhythm, normal heart sounds Gastrointestinal/Abdomen Exam: soft, No tenderness, No mass Male Genitalia Exam: deferred Rectal Exam: deferred Back Exam: normal inspection, normal range of motion, No CVA tenderness, No vertebral tenderness Extremity Exam: normal inspection, normal range of motion Skin Exam: normal color, warm, dry Final Diagnosis/Problem List - Final Discharge Diagnosis/Problem (1) Dizziness Current Visit: Yes Status: Acute Code(s): R42 - DIZZINESS AND GIDDINESS (2) Migraine Current Visit: Yes Status: Acute Code(s): G43.909 - MIGRAINE, UNSP, NOT INTRACTABLE, WITHOUT STATUS MIGRAINOSUS (3) Syncope Current Visit: Yes Status: Acute Code(s): R55 - SYNCOPE AND COLLAPSE (4) Arachnoid cyst Current Visit: Yes Status: Acute Code(s): G93.0 - CEREBRAL CYSTS Telemedicine Encounter - Telemedicine Encounter Telemedicine Encounter: 1. Dizziness - stable - tele - echo pending 2. Migraine with hx - resolved 3. Syncope - neurology consulted- reviwed note and agree with plan of care - CT and MRI reviwed - Possible arachnoid cyst - Echo pending - neurology exam non-concerning - F/u with neurology OP 4. History of anxiety and depression - Continue Lexapro 5. Arachnoid cyst -f/u OP with neurosurgery D/C home F/u with neurosurgery and PCP - Discharge Disposition: Home, Self-Care Condition: Stable Prescriptions: Continue Escitalopram Oxalate [Lexapro] 30 mg PO HS Additional Instructions: REFERRAL SENT TO [facility] IN [place], [place]. THEY WILL CALL YOU TO SET UP AN APPT Follow up with: EDELMIRA AGUAYO MD [Primary Care Provider] - 03/19/23 10:15 am
[2023-03-11 11:34] VITALS: BP 114/69; PULSE 65; RESP 16; TEMP 97.8
[2023-03-11] MEDS: PROTONIX 40 MG IV IV SCH (11:34)
[2023-03-11] MEDS: ENOXAPARIN SODIUM SQ SCH (11:34)
--- NOTE | 2023-03-12 10:50 | ECHO ---
DATE OF PROCEDURE: 03/10/2023 CLINICAL INFORMATION: Syncope. The M-mode 2D, and Doppler echocardiogram including color flow Doppler shows the left ventricle is normal in size. There is no thrombus present. The wall thickness is normal. The contractility is normal. The ejection fraction is calculated to be 79%. The right ventricle is grossly normal. The left atrium is normal in size. The interatrial septum is intact. The right atrium is normal. The aortic valve opens well. There is no aortic regurgitation. The mitral valve is normal. There is mild tricuspid regurgitation. The right ventricular systolic pressure is calculated to 34 mm of Mercury. There is mild pulmonic regurgitation. The aortic root is normal. There is no pericardial effusion present. The pulmonic valve is not well visualized. IMPRESSION: 1) NORMAL CONTRACTILITY OF THE LEFT VENTRICLE. 2) MILD TRICUSPID REGURGITATION. 3) MILD PULMONARY HYPERTENSION. 4) MILD PULMONIC REGURGITATION.
[2023-03-13 12:25] VITALS: O2SAT 98
== END 2023-03-11 12:50 | disposition home or self-care (01) ==
LOC: ED 19:06 → MED SURG 03-10 03:31
PROVIDERS: ADMIT Internal Medicine; ATTEND Internal Medicine
DX: R42 Dizziness and giddiness (principal); G43.909 Migraine, unspecified, not intractable, without status migrainosus; R55 Syncope and collapse; G93.0 Cerebral cysts; F41.9 Anxiety disorder, unspecified; F32.A Depression, unspecified; W19.XXXA Unspecified fall, initial encounter; R07.9 Chest pain, unspecified; Z79.899 Other long term (current) drug therapy; Z20.828 Contact with and (suspected) exposure to other viral communicable diseases
CPT/HCPCS: 36000; 36415; 70450; 70496; 70498; 70551; 71045; 80053; 80307; 81001; 82550; 83735; 83880; 84484; 85025; 93005; 93041; 93268; 93306; 96360; 96374; 96375; 99285; G0378; Q3014; J1200; J1650; J1885; A9270-GY

== ENCOUNTER 2024-02-11 11:24 | Day surgery (SDC) | payer OTHER ==
[2024-02-11] MEDS ORDERED: LIDOCAINE HCL 1% 50 MG/5 ML VL PF IJ ONE (11:25)
[2024-02-11] MEDS ORDERED: Depo-Medrol 40 MG/ML IM ONE (11:25)
[2024-02-11] MEDS ORDERED: Sodium Chloride 0.9(Preservative Free) 10 ML IJ ONE (11:25)
[2024-02-11] MEDS ORDERED: Lactated Ringers 1,000 ML IV ONE (12:10)
[2024-02-11] MEDS ORDERED: DIPRIVAN 200 MG/20 ML IV ONE ×2 (12:25→13:10)
--- NOTE | 2024-02-11 13:15 | XRAY ---
Indication: Lumbar ZANE. Intraoperative fluoroscopy provided for 17 seconds. 2 lateral digital spot image submitted for interpretation demonstrates needle tip projecting posterior to last lumbar segment. Small amount of contrast injected for needle tip placement. Correlate with intraoperative findings/report.
--- NOTE | 2024-02-11 13:18 | XRAY ---
17 seconds of fluoroscopy was used in surgery for a lumbar ZANE.
== END 2024-02-11 12:54 | disposition home or self-care (01) ==
LOC: SDC-PAIN 11:24
PROVIDERS: ATTEND Psychiatry & Neurology Pain Medicine
DX: M54.16 Radiculopathy, lumbar region (principal)
CPT/HCPCS: 62323; 72100; 77003; J2001; J2704; Q9966

== ENCOUNTER 2024-06-15 15:11 | Emergency (ER) | payer OTHER ==
[2024-06-15 15:36] VITALS: TEMP 97.2
--- NOTE | 2024-06-15 15:36 | ERPHSYRPT ---
- History of Present Illness Time Seen by Provider: 06/15/24 15:34 Source: patient Exam Limitations: no limitations Physician History: 38-year-old male history of schizophrenia bipolar presents to our ED for evaluation of feeling depressed and thoughts of self-harm without a specific plan. Patient states that he stopped taking his psychiatric medications approximately 3 weeks ago. Patient states he felt well and felt that they were no longer necessary. Now patient feels depressed and is seeking to restart his medications. He denies ingesting any toxic substances. Patient denies pain. Patient is tearful however he is conversant and otherwise displaying appropriate behavior. Patient voices no other complaints or concerns at this time. No chest pain or shortness of breath. No nausea vomiting or diaphoresis. Portions of this note were created with voice recognition technology. There may be grammatical, spelling, punctuation or sound alike errors Timing/Duration: today Severity of Symptoms-Max: moderate Context related to: other (Stop taking his home medications.) Suicidal thoughts: other (Suicidal thoughts) Associated Symptoms: depressed Previous symptoms: same symptoms as today Allergies/Adverse Reactions: erythromycin base Allergy (Verified 03/09/23 19:12) Hives Home Medications: No Reportable Medications [No Reported Medications] 06/15/24 [History] Hx Tetanus, Diphtheria Vaccination/Date Given: Yes Hx Influenza Vaccination/Date Given: Yes Hx Pneumococcal Vaccination/Date Given: No - Past Medical History Pertinent Past Medical History: Yes Neurological History: Migraines ENT History: No Pertinent History Cardiac History: Hypertension, Other Respiratory History: COPD Endocrine Medical History: No Pertinent History Musculoskeletal History: No Pertinent History GI Medical History: No Pertinent History History: No Pertinent History Psycho-Social History: Depression Male Reproductive Disorders: No Pertinent History Other Medical History: IRREGULAR HEART BEAT. NO RECENT MEDICATION CHANGES. - Past Surgical History Past Surgical History: Yes Neuro Surgical History: No Pertinent History Cardiac: No Pertinent History Respiratory: No Pertinent History Gastrointestinal: Hernia Repair Genitourinary: No Pertinent History Musculoskeletal: Orthopedic Surgery Male Surgical History: No Pertinent History Other Surgical History: acl repair. back surgery Significant Family History: no pertinent family hx - Social History Smoking Status: Former smoker Exposure to second hand smoke: No Drug Use: none Patient Lives Alone: No - Review of Systems Constitutional: No Symptoms, No Fever, No Chills Eyes: No Symptoms Ears, Nose, & Throat: No Symptoms Respiratory: No Symptoms, No Cough, No Dyspnea Cardiac: No Symptoms, No Chest Pain, No Edema, No Syncope Abdominal/Gastrointestinal: No Symptoms, No Abdominal Pain, No Nausea, No Vomiting, No Diarrhea Genitourinary Symptoms: No Symptoms, No Dysuria Musculoskeletal: No Symptoms, No Back Pain, No Neck Pain Skin: No Symptoms, No Rash Neurological: No Symptoms, No Dizziness, No Focal Weakness, No Sensory Changes Psychological: No Symptoms Endocrine: No Symptoms Hematologic/Lymphatic: No Symptoms Immunological/Allergic: No Symptoms All Other Systems: Reviewed and Negative - Nursing Vital Signs Nursing Vital Signs: Initial Vital Signs O2 Sat by Pulse Oximetry 99 06/15/24 15:18 Pain Scale Pain Intensity 0 - Physical Exam General Appearance: no apparent distress Eyes, Ears, Nose, Throat Exam: normal ENT inspection, moist mucous membranes Neck Exam: normal inspection, non-tender, supple Respiratory Exam: normal breath sounds, lungs clear, airway intact, No respiratory distress Cardiovascular Exam: regular rate/rhythm, No edema Gastrointestinal/Abdominal Exam: soft, No tenderness, No distention Extremities Exam: normal inspection, normal range of motion, No evidence of injury, No edema Current Suicidality: denies suicide plan Neurological Exam: alert, airline captain II-XII nml as tested, oriented x 3 Appearance: appropriate appearance, appropriate insight, neat Behavior/Eye Contact/Speech: alert & cooperative, cooperative, good eye contact, normal speech Thoughts/Hallucinations: normal thought pattern, no apparent hallucination, auditory hallucinations, No delusions Skin Exam: normal color, warm, dry, No rash SpO2 Interpretation: normal SpO2: 98 O2 Delivery: Room Air - Course Nursing assessment & vital signs reviewed: Yes Ordered Tests: Active Orders 24 hr Category Date Time Status Creative Services Specialist STAT Care 06/15/24 15:33 Active Tele-Health Consult ROUTINE Cons 06/15/24 18:41 Active ACETAMINOPHEN Stat Lab 06/15/24 15:45 Completed CBC W DIFF Stat Lab 06/15/24 15:45 Completed CMP Stat Lab 06/15/24 15:45 Completed ETHYL ALCOHOL Stat Lab 06/15/24 15:45 Completed SALICYLATE Stat Lab 06/15/24 15:45 Completed Urine Triage Profile Stat Lab 06/15/24 15:42 Completed Lab/Rad Data: Laboratory Result Diagrams 06/15/24 15:45 06/15/24 15:45 Laboratory Results 06/15/24 06/15/2424 Range/Units 15:45 15:45 15:42 WBC 5.5 (4.23-9.07) x10^3/uL RBC 5.26 (4.63-6.08) x10^6/uL Hgb 16.0 (13.7-17.5) g/dL Hct 45.2 (40.1-51.0) % MCV 85.9 (79.0-92.2) fL MCH 30.4 (25.7-32.2) pg MCHC 35.4 (32.3-36.5) g/dL RDW 11.9 (11.6-14.4) % Plt Count 247 (163-337) x10^3/uL MPV 9.6 (9.4-12.4) fL Gran % 61.5 (34.0-67.9) % Immature Gran % (Auto) 0.2 (0.001-0.429) % Nucleat RBC Rel Count 0.0 (0.00-0.2) % Eos # (Auto) 0.09 (0.04-0.54) x10^3/uL Immature Gran # (Auto) 0.01 (0.001-0.031) x10^3u/L Absolute Lymphs (auto) 1.70 (1.32-3.57) x10^3/uL Absolute Monos (auto) 0.26 L (0.30-0.82) x10^3/uL Absolute Nucleated RBC 0.00 (0.00-0.012) x10^3u/L Lymphocytes % 31.2 (21.8-53.1) % Monocytes % 4.8 L (5.3-12.2) % Eosinophils % 1.7 (0.8-7.0) % Basophils % 0.6 (0.2-1.2) % Absolute Granulocytes 3.36 (1.78-5.38) x10^3/uL Basophils # 0.03 (0.01-0.08) x10^3/uL Sodium 141 (135-145) mmol/L Potassium 4.2 (3.5-5.1) mmol/L Chloride 104 (98-107) mmol/L Carbon Dioxide 30 (22-30) mmol/L Anion Gap 11.5 (5-15) MEQ/L BUN 8 L (9-20) mg/dL Creatinine 0.92 (0.66-1.25) mg/dL Estimated GFR 108.5 ML/MIN Glucose 91 (74-106) mg/dL Calcium 9.3 (8.4-10.2) mg/dL Total Bilirubin 1.00 (0.2-1.3) mg/dL AST 25 (17-59) U/L ALT 23 (0-50) U/L Alkaline Phosphatase 84 (38-126) U/L Serum Total Protein 7.4 (6.3-8.2) g/dL Albumin 4.6 (3.5-5.0) g/dL Salicylates < 1.0 L (2-20) mg/dL Urine Opiates Level NEGATIVE (NEGATIVE) Ur Methadone NEGATIVE (NEGATIVE) Acetaminophen < 10 L (10-30) ug/ml Urine Barbiturates NEGATIVE (NEGATIVE) Ur Phencyclidine (PCP) NEGATIVE (NEGATIVE) Urine Amphetamine NEGATIVE (NEGATIVE) U Benzodiazepine Level NEGATIVE (NEGATIVE) Urine Cocaine NEGATIVE (NEGATIVE) Urine Marijuana (THC) NEGATIVE (NEGATIVE) Ethyl Alcohol < 10 (0-10) mg/dL - Progress Progress: improved Progress Note: 38-year-old male history of bipolar and schizophrenia off of his medications voluntarily. Patient now complaining of depressed mood. Patient denies homicidal suicidal ideation at this time. Patient was evaluated by [facility]. They feel patient is safe for discharge. Patient to follow-up at [facility] to restart his home medications. Vital stable. Laboratory workup nonremarkable. Patient reassessed. He appears to be in good spirits. Patient agrees to return to our ED or to seek help if he develops homicidal suicidal ideation. No indication for further workup at this time. Will discharge home. Portions of this note were created with voice recognition technology. There may be grammatical, spelling, punctuation or sound alike errors Complexity of problem addressed is moderate acute complicated. No critical care time. Complex of data reviewed and analyzed is extensive. Test ordered chest reviewed results analyzed and correlated clinically with history and physical exam. Patient evaluated by [facility]. Risk of complication and or risk of morbidity/mortality of patient management is low. Vital stable. Time spent to discharge patient is approximately 15 minutes. Plan of care established for shared decision making. No social determinants of health present to impede follow-up. Portions of this note were created with voice recognition technology. There may be grammatical, spelling, punctuation or sound alike errors 06/15/24 20:56 Counseled pt/family regarding: lab results, diagnosis, need for follow-up - Departure Departure Disposition: Home Clinical Impression: Depressed mood, Noncompliance with medication regimen Condition: Stable Critical Care Time: No Referrals: EDELMIRA AGUAYO MD [Primary Care Provider] - Follow up/PCP as directed Additional Instructions: Discharge/Care Plan ROSELYN VARGAS was seen on 06/15/24 in the Emergency Room. The patient was counseled regarding Diagnosis,Lab results, Imaging studies, need for follow up and when to return to the Emergency Room. Prescriptions given: Discharge Note I have spoken with the patient and/or caregivers. I have explained the patient's condition, diagnosis and treatment plan based on the information available to me at this time. I have answered the patient's and/or caregiver's questions and addressed any concerns. The patient and/or caregivers have as good understanding of the patient's diagnosis, condition and treatment plan as can be expected at this point. The vital signs have been stable. The patient's condition is stable and appropriate for discharge from the emergency department. The patient will pursue further outpatient evaluation with the primary care physician or other designated or consulting physician as outlined in the discharge instructions. The patient and/or caregivers are agreeable to this plan of care and follow-up instructions have been explained in detail. The patient and/or caregivers have received these instruction. The patient/and or caregivers are aware that any significant change in condition or worsening of symptoms should prompt an immediate return to this or the closest emergency department or call 911.
[2024-06-15 15:50] LABS: Absolute Neutrophil Ct (ANC) 3.36 x10^3/uL (1.78-5.38); BASOPHIL % 0.6 % (0.2-1.2); Basophil (Absolute #) 0.03 x10^3/uL (0.01-0.08); Eosinophil % 1.7 % (0.8-7.0); Eosinophil (Absolute #) 0.09 x10^3/uL (0.04-0.54); Hematocrit 45.2 % (40.1-51.0); IMMATURE GRAN # 0.01 x10^3u/L (0.001-0.031); IMMATURE GRAN % 0.2 % (0.001-0.429); Lymphocytes % 31.2 % (21.8-53.1); Mean Cell Volume 85.9 fL (79.0-92.2); Mean Corpuscular Hemoglobin 30.4 pg (25.7-32.2); Mean Corpuscular Hgb Concent. 35.4 g/dL (32.3-36.5); Mean Platelet Volume 9.6 fL (9.4-12.4); Monocyte (Absolute #) 0.26 x10^3/uL (0.30-0.82); Monocytes % 4.8 % (5.3-12.2); Neutrophil % 61.5 % (34.0-67.9); Platelet Count 247 x10^3/uL (163-337); Red Blood Count 5.26 x10^6/uL (4.63-6.08); Red Cell Distribution Width 11.9 % (11.6-14.4); White Blood Count 5.5 x10^3/uL (4.23-9.07)
[2024-06-15 16:05] LABS: ACETAMINOPHEN < 10 ug/ml (10-30); ALBUMIN 4.6 g/dL (3.5-5.0); ALKALINE PHOSPHATASE 84 U/L (38-126); ANION GAP 11.5 MEQ/L (5-15); BLOOD UREA NITROGEN 8 mg/dL (9-20); CHLORIDE 104 mmol/L (98-107); Calcium 9.3 mg/dL (8.4-10.2); Carbon Dioxide 30 mmol/L (22-30); Creatinine 1 0.92 mg/dL (0.66-1.25); EST GLOMERULAR FILTRATION RATE 108.5 ML/MIN; ETHYL ALCOHOL < 10 mg/dL (0-10); Glucose 91 mg/dL (74-106); Potassium 4.2 mmol/L (3.5-5.1); SALICYLATE < 1.0 mg/dL (2-20); SGOT/AST 25 U/L (17-59); SGPT/ALT 23 U/L (0-50); SODIUM 141 mmol/L (135-145); Total Protein 7.4 g/dL (6.3-8.2)
[2024-06-15 16:11] LABS: Amphetamine,Urine NEGATIVE (NEGATIVE); Barbiturate,Urine NEGATIVE (NEGATIVE); Benzodiazepine,Urine NEGATIVE (NEGATIVE); Cocaine,Urine NEGATIVE (NEGATIVE); Methadone,Urine NEGATIVE (NEGATIVE); Opiate,Urine NEGATIVE (NEGATIVE); PCP,Urine NEGATIVE (NEGATIVE); THC,Urine NEGATIVE (NEGATIVE)
[2024-06-15 21:07] VITALS: BP 121/84; PULSE 51; RESP 16; O2SAT 99
== END 2024-06-15 21:04 | disposition home or self-care (01) ==
LOC: ED 15:11
DX: F32.A Depression, unspecified (principal); Z91.148 Patient's other noncompliance with medication regimen for other reason
CPT/HCPCS: 36415; 80053; 80143; 80179; 80307; 82077; 85025; 93041; 99284; Q3014

== ENCOUNTER 2024-08-11 12:44 | Day surgery (SDC) | payer OTHER ==
[2024-08-11] MEDS ORDERED: Depo-Medrol 40 MG/ML IM ONE (12:45)
[2024-08-11] MEDS ORDERED: Sodium Chloride 0.9(Preservative Free) 10 ML IJ ONE (12:45)
[2024-08-11] MEDS ORDERED: propofoL IV ONE (13:11)
--- NOTE | 2024-08-11 14:41 | XRAY ---
Indication: Caudal ZANE. Intraoperative fluoroscopy provided for 34 seconds. 5 digital spot image submitted for interpretation demonstrates caudal needle tip projecting mid sacrum. Small amount of contrast injected for needle tip placement. Correlate with intraoperative findings/report.
--- NOTE | 2024-08-11 14:51 | XRAY ---
34 seconds of fluoroscopy was used in surgery for a caudal ZANE.
== END 2024-08-11 13:46 | disposition home or self-care (01) ==
LOC: SDC-PAIN 12:44
PROVIDERS: ATTEND Psychiatry & Neurology Pain Medicine
DX: M54.16 Radiculopathy, lumbar region (principal)
CPT/HCPCS: 62323; 72220; 77003; J2704; Q9966